=== PATIENT | female | born 1995 | race Caucasian/White ===

== ENCOUNTER 2021-05-29 14:07 | Emergency (ER) | payer BC ==
--- OUTSIDE RECORDS SUMMARY | 2021-05-29 14:10 | XMS REPORT | Continuity of Care Document ---
:1995 Author Organization [facility] t Address [address] [place] [address] Care Team Providers Name Role Phone Joaquin YEUNG Attending Clinician Unavailable Joaquin Arguelles DO Attending Clinician Joaquin Yeung MD Attending Clinician Doctor Unassigned, Name Attending Clinician Unavailable Lab, Fam Pob I Attending Clinician Unavailable Margy LUONG Attending Clinician MARGY Attending Clinician Unavailable FRACISCO Attending Clinician Unavailable DR VICTORIA Attending Clinician Unavailable Joaquin Yeung MD Admitting Clinician DR VICTORIA Admitting Clinician Unavailable Payers Payer Name Policy Type Policy Number Effective Date Expiration Date S [facility] [id number] 2014 00:00:00 Problems Condition Condition Condition Status Onset Resolution Last Treating Co mments Source Name Details Category Date Date Treatment Clinician Date 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 Univers arch arch 1-05 ity of anomaly anomaly 00:00: [place] 00 Medical Branch 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 1-05 ity of dilation dilation 00:00: 00 Medical Branch AV block, AV block, Disease Active 2019-04 Uni vers complete, complete, 1-05 [place] Pacemaker Pacemaker Disease Active 2019-04 Uni vers 1-05 ity of 00:00: [place] 00 Medical Branch Acute Acute Disease Active 2019-04 Univers appendicit appendicit 1-04 it y of is is 00:00: [place] [facility] Tinnitus Tinnitus Disease Active Unive rs 2-21 ity of 00:00: [place] 00 Medical Branch No known No known Disease Unive rs active active ity of problems problems [facility] Allergies, Adverse Reactions, Alerts Allergy Allergy Status Severity Reaction(s) Onset Inactive Treating Comm ents Source Name Type Date Date Clinician No Known DA Active [facility] s Center NO KNOWN Drug Active [facility] ALLERG Class ity of S [facility] Social History Social Habit Start Date Stop Date Quantity Comments Source Sex Assigned At Uni versity of [facility] Exposure to SARS-CoV-2 Not sure Un iversity of [place] (event) [facility] Smoking Status Start Date Stop Date Source Unknown if ever smoked Universit y [facility] Medications Ordered Filled Start Stop Current Ordering Indication Dosage Frequency Signature Comments Components Source Medication Medication Date Date Medication? Clinician (SIG) Name Name celecoxib 2019-04 Yes 100mg 100 mg, Univ ers (CELEBREX) 1-05 Oral, BID ity of capsule 100 14:00: [place]ALS[place] mg 00 First dose Medical on Thu Branch 02/09/20 at 0800, Until Discontinu ed, Routine lactated 2019-04 Yes 1000[facility]-05 mL/hr, ity of infusion 02:15: 1,000 mL[place] 1,000 [place] 00 IV Medical Infusion, Branch CONTINUOUS , Starting Thu02/08/20 at 2015, Until Discontinu ed, Routine, PACU D5W 0.45% 2019-04 Yes IV Univers NaCl 1-05 Infusion, ity of (1/2NS) 1 L 02:00: at 75 [place] + KCL 20 00 mL/hr, Medical mEq CONTINUOUS Branch , Starting Thu02/08/20 at 2000, Until Discontinu ed, Routine HYDROcodone 2019-04 Yes 1{tbl} 1 tablet, Univers -acetaminop 1-05 Oral, ity of hen (NORCO 01:52: Q6HPRN, [place] 5) 5-325 mg 41 Starting Medi jody tablet 1 Thu Branch tablet 02/08/20 at 1952, Until Discontinu ed, Routine, Pain (scale 7-10) ibuprofen 2019-04 Yes [id number] 800mg Take 1 Univers 800 mg 1-05 tablet by ity of tablet 00:00: mouth [place] 00 every 6 Medical (six) Branch hours as needed for Pain (scale 4-6). acetaminoph 2019-04 No [id number] 650mg Take 2 Univers en 325 mg 04-10 tablets by ity of tablet 00:00: 04:59 mouth [place] 00 :00 every 6 Medical (six) Branch hours as needed for Pain (scale 1-3) or Pain (scale 4-6). traMADoL 50 2019-04 No [id number] 50mg Take 1 Uni vers mg tablet 04-10 tablet by ity of 00:00: 05:59 mouth [place] 00 :00 every 6 Medical (six) Branch hours as needed for Pain (scale 7-10) for up to 7 days. Indication s: acute pain piperacilli 2019-04 No 3.375g 3.375 g, Univers n-tazobacta 04-09 IV ity of m (ZOSYN) 22:15: 01:53 Pig[place]back, [place] 3.375 g in 00 :23 Q6H ABX, Medic al NaCl 0.9% First dose Bran ch (NS) 100 mL on Thu MINI-BAG 02/08/20 at 1615, Until Discontinu ed, 100 mL
[place] for Anti-Infec tive: Documented Infection< br>Documen mayur Infection Site: Abdominal< br>Duratio n of Therapy: 7 days D5W 0.45% 2019-04- No IV Univers NaCl 04-09 Infusion, ity of (1/2NS) 1 L 21:45: 01:59 at 125 [place] + KCL 20 00 :10 mL/hr, Medical mEq CONTINUOUS Branch , Starting Thu02/08/20 at 1545, Until Thu02/08/20 at 1959, Routine morpHINE 2019-04- No 4mg 4 mg, Slow Un sara injection 4 04-09 IV Push, ity of mg 21:35: 21:34 Q4HPRN, [place] 34 :34 Starting Medical Wed Branch 02/08/20 at 1535, Until Thu02/10/20 at 1534, Routine, Pain (scale 7-10) ondansetron 2019-04 Yes 4mg 4 mg, Slow Univers (ZOFRAN 04-09 IV Push, ity of (PF)) 21:35: Q6HPRN, [place] injection 4 29 Starting Medi jody mg Wed [place] 02/08/20 at 1535, Until Discontinu ed, Routine, Nausea and Vomiting (N/V) ondansetron 2019-04- No 4mg 4 mg, Slow Univers (ZOFRAN 04-09 IV Push, ity of (PF)) 17:15: 16:17 ONCE, 1 [place] injection 4 00 :00 dose, Wed Med ical mg 02/08/20 at Branch 1115, GRETCHEN morpHINE 2019-04- No 4mg 4 mg, Slow Un sara injection 4 04-09 IV Push, ity of mg 17:15: 16:17 ONCE, 1 [place] 00 :00 dose, [facility] Medical 02/08/20 at [place] 1115, STAT NaCl 0.9% 2019-04- No 1000mL at 999 Uni vers (NS) bolus 04-09 mL/hr, ity of infusion 16:15: 16:15 1,000 mL, [place] 1,000 mL 00 :00 IV Medical Infusion, [place] ONCE, 1 dose, [facility] 02/08/20 at 1015, GRETCHEN iohexol 2019-04- No 120mL 120 mL, Unive rs (OMNIPAQUE 04-09 Intravenou it y of 350 15:30: 15:12 s, ONCE, 1 [place] BULK-150 00 :00 dose, [facility] Medica l mL) 02/08/20 at [place] injection 0930, 120 mL Routine maalox:diph 2019-04- No 15mL 15 mL, Uni vers enhydrAMINE 04-09 Oral, ity of :lidocaine 14:30: 14:33 ONCE, 1 [place] 2 % viscous 00 :00 dose, Wed Med ical 1:1:1 02/08/20 at [place] (FIRST-MOUT 0830, GRETCHEN HWASH BLM) oral suspension 15 mL traMADOL 2015-0 Yes 50mg Take 1 Tab Uni vers (ULTRAM) 50 9-27 by mouth ity of mg tablet 00:00: every 6 [place] 00 (six) Medical hours as [place] needed for Pain unrelieved by non-narcot ic analgesics . traMADOL 2015-0 Yes 50mg Take 1 Tab Uni vers (ULTRAM) 50 9-27 by mouth ity of mg tablet 00:00: every 6 [place] 00 (six) Medical hours as Branch needed for Pain unrelieved by non-narcot ic analgesics . traMADOL 50mg Take 1 Tab Un sara (ULTRAM) 50 12-31 by mouth ity of mg tablet 00:00: 00:00 every 6 [place] 00 :00 (six) Medical hours as Branch needed for Pain unrelieved by non-narcot ic analgesics . Vital Signs Vital Name Observation Time Observation Value Comments Source Systolic blood 2020-02-09 13:26:00 121 mm[Hg] Univer sity of pressure [facility] Diastolic blood 2020-02-09 13:26:00 76 mm[Hg] Unive rsity of [facility] Heart rate 2020-02-09 13:26:00 74 /min Universi ty of [facility] Body temperature 2020-02-09 13:26:00 36.61 Christie Univ ersity of [facility] Respiratory rate 2020-02-09 13:26:00 20 /min Univ ersity of [facility] Oxygen saturation in 2020-02-09 13:26:00 99 /min University of Arterial blood by [facility] Pulse oximetry Branch Body height 2020-02-08 18:23:00 165.1 cm Universi ty of [facility] Body weight 2020-02-08 18:23:00 68.493 kg Universi ty of [facility] BMI 2020-02-08 18:23:00 25.13 kg/m2 Universi ty [facility] Systolic blood 2020-02-09 13:26:00 121 mm[Hg] Univer sity of [facility] Diastolic blood 2020-02-09 13:26:00 76 mm[Hg] Unive rsity of [facility] Heart rate 2020-02-09 13:26:00 74 /min Universi ty of [facility] Body temperature 2020-02-09 13:26:00 36.61 Christie Univ ersity of [facility] Respiratory rate 2020-02-09 13:26:00 20 /min Univ ersity of [facility] Oxygen saturation in 2020-02-09 13:26:00 99 /min University of Arterial blood by [facility] Pulse oximetry Branch Body height 2020-02-08 18:23:00 165.1 [address]i ty [facility] Body weight 2020-02-08 18:23:00 68.493 kg [facility] BMI 2020-02-08 18:23:00 25.13 kg/m2 [facility] Height 2019-09-28 13:55:00 165.1 CM Weight 2019-09-28 13:55:00 30.32 KG Procedures Procedure Date / Time Performing Clinician Source Performed BASIC METABOLIC PANEL 2020-02-09 10:46:00 [facility] [place] (NA, K, CL, CO2, Medical Branch GLUCOSE, BUN, CREATININE, CA) CBC WITH DIFF 2020-02-09 10:46:00 Shon Ornelas [facility] LAPAROSCOPIC 2020-02-09 00:00:00 Shi Peterson [facility] APPENDECTOMY [facility] COVID-19 (ID NOW RAPID 2020-02-08 16:10:00 [facility] CT ABDOMEN PELVIS W 2020-02-08 15:18:37 Tish Arguelles [facility] CONTRAST [facility] Branch LIPASE 2020-02-08 14:32:00 Tish Arguelles [facility] HEPATIC FUNCTION PANEL 2020-02-08 14:32:00 [facility] ([id number] (ALB,T.PRO,BILI Medical Branch T,BU/BC,ALT,AST,ALK PHOS) BASIC METABOLIC PANEL 2020-02-08 14:32:00 Tish Arguelles [facility] versity [facility] (NA, K, CL, CO2, Medical Branch GLUCOSE, BUN, CREATININE, CA) CBC WITH DIFF 2020-02-08 14:32:00 Tish Arguelles [facility] URINALYSIS 2020-02-08 14:09:00 Tish Arguelles [facility] POCT TEST 2020-02-08 14:09:00 Tish Arguelles [facility] NOTICE OF PRIVACY 2020-02-08 13:48:54 Doctor Unassigned, No Univ [facility] PRACTICES Name [facility] CONSENT/REFUSAL FOR 2020-02-08 13:48:41 Doctor Unassigned, No [facility]AT[facility] Name [facility] Branch HOSPITAL ADMISSION 2020-02-08 06:01:00 Doctor Unassigned, No Uni versity of [facility] Encounters Start End Encounter Admission Attending Care Care Encounter Source Date/Time Date/Time Type Type Clinicians Facility Department ID 2021-02-02 Emergency [facility] [id number] Univers 02:57:[address] [facility] 2020-02-14 2020-02-14 Outpatient R GAMAL, [facility] [id number] Univers 11:15:00 11:15:[address] [facility] 2020-02-08 2020-02-09 Emergency Tish Arguelles 1.2.8 40.114 [id number] 08:06:00 12:49:00 Annelise Yeung [id number] [facility] [id number] [id number] 2020-02-08 2020-02-09 Emergency Tish Arguelles 1.2.8 40.114 [id number] Univers 08:06:00 12:49:00 Annelise Yeung [id number] ity of [facility] 4.2.7.2.686 [place] [phone] [facility] 095 [place] 2020-02-08 2020-02-08 Orders Doctor EVELINA [id number] 00:00:00 00:00:00 Only Unassigned, EZEQUIEL [id number] [place] [facility] 4.2.7.2.686 [id number] 2020-02-08 2020-02-08 Orders Doctor HOYT [id number] Univers 00:00:00 00:00:00 Only Unassigned, EZEQUIEL [id number] ity of [place] [facility] 4.2.7.2.686 [place] [id number] [facility] 009 [place] 2019-10-12 2019-10-12 Laboratory Lab, [facility] [id number] 14:55:22 15:15:22 Only Fam Pob I Health [id number] [place] 4.2.7.2.686 Professio [phone] nal [address] 2019-10-12 2019-10-12 Laboratory Lab, [facility] Fam Pob I [facility] 1.2. [id number] Univers 14:55:22 15:15:22 Only Bailey Fenton [facility] [id number] [facility] 4.2.7.2.686 [place] Professio [phone] Vt dical nal 0[address] Branch [address] 2019-10-12 2019-10-12 Outpatient [facility] [id number] Univers 15:00:00 15:00:00 BAILEY [facility] 2019-09-30 2019-09-30 Outpatient R MABLEARYAN, [facility] [id number] Univers 16:00:00 16:00:00 RIOS [facility] 2019-09-28 2019-09-28 Emergency E VICTORIA, [facility] [id number] [place] 13:55:00 15:45:00 ANNELISE Brady [facility] Results Test Description Test Time Test Comments Results Result Comments Source CBC with Differential 2020-02-09 12:07:00 Test Item Value Reference Range Interpretation Comme nts WBC (test code = 6690-2) See_Comment H [A utomated message] The system which ge nerated this result transmit mayur reference range: 4.30 - 1 1.10 10*3/?L. The reference r anca was not used to interpr et this result as normal/abnor mal. RBC (test code = 789-8) See_Comment [Au tomated message] The system which ge nerated this result transmit mayur reference range: 3.93 - 5 .25 10*6/?L. The reference r anca was not used to interpr et this result as normal/abnor mal. HGB (test code = 718-7) 12.1 g/dL 11.6-15 HCT (test code = 4544-3) 35.2 % 35.7-45.2 L MCV (test code = 787-2) 88.4 fL 80.6-95.5 MCH (test code = 785-6) 30.4 pg 25.9-32.8 MCHC (test code = 786-4) 34.4 g/dL 31.6-35.1 RDW-SD (test code = 08940-0) 38.2 fL 39-49.9 L RDW-CV (test code = 788-0) 11.8 % 12-15.5 L PLT (test code = 777-3) See_Comment [Au tomated message] The system which ge nerated this result transmit mayur reference range: 166 - 35 8 10*3/?L. The reference range was not used to interpret th is result as normal/abnormal . MPV (test code = 13613-6) 10.7 fL 9.5-12.9 NRBC/100 WBC (test code = See_Comment [ Automated message] The [id number]) system which ge nerated this result transmit mayur reference range: 0.0 - 10 .0 /100 WBCs. The reference r anca was not used to interpr et this result as normal/abnor mal. NRBC x10^3 (test code = <0.01 See_Comment [Au tomated message] The 4353078127) system which ge nerated this result transmit mayur reference range: 10*3/?L. The reference range was not u sed to interpret this result as normal/abnormal . GRAN MAT (NEUT) % (test code 91.9 % = 770-8) IMM GRAN % (test code = 0.50 % 8641241632) LYMPH % (test code = 736-9) 3.8 % MONO % (test code = 5905-5) 3.7 % EOS % (test code = 713-8) 0.0 % BASO % (test code = 706-2) 0.1 % GRAN MAT x10^3(ANC) (test 17.02 10*3/uL 1.88-7.09 H code = 9165222652) IMM GRAN x10^3 (test code = 0.10 10*3/uL 0-0.06 H 6182749734) LYMPH x10^3 (test code = 0.70 10*3/uL 1.32-3.29 L 731-0) MONO x10^3 (test code = 0.68 10*3/uL 0.33-0.92 742-7) EOS x10^3 (test code = <0.03 0.03-0.39 L 711-2) BASO x10^3 (test code = <0.03 0.01-0.07 704-7) BANDS (test code = Increased A 9075616188) Lab Interpretation (test Abnormal code = 26719-4) [facility] (NA, K, CL, CO2, GLUCOSE, BUN, CREATININE, CA)2020-02-09 11:48:00 Test Item Value Reference Range Interpretation Comments NA (test code = 136 mmol/L 135-145 4550090955) K (test code = 4.0 mmol/L 3.5-5 1201109725) CL (test code = 103 mmol/L 98-108 1316915960) CO2 TOTAL (test code = 24 mmol/L 23-31 5271912567) AGAP (test code = 2-16 2328725735) BUN (test code = 6 mg/dL 7-23 L 8037826221) GLUCOSE (test code = 160 mg/dL 70-110 H 7861527573) CREATININE (test code = 0.52 mg/dL 0.5-1.04 4593058895) CALCIUM (test code = 9.0 mg/dL 8.6-10.6 4001688939) eGFR Calculation mL/min/1.73m2 (Non-) (test code = 1123231597) eGFR Calculation mL/min/1.73m2 () (test code = 5139878393) RENU (test code = RENU) Association of Glomerular Filtration Rate (GFR) and Staging of Kidney Disease* + --+ --+ ------+| GFR (mL/min/1.73 m2) ?| With Kidney Damage ?| ?Without Kidney Damage+ --------+ --------+ +| ?>90 ?| ?Stage one ?| ? Normal ?+ ---+ ---+ -------+| ?60-89 ?| ?Stage two ?| ? Decreased GFR ? + --+ --+ ------+| ?30-59 ?| ?Stage three ?| ? Stage three ? + --+ --+ ------+| ?15-29 ?| ?Stage four ? | ? Stage four ?+ ---+ ---+ -------+| ?<15 (or dialysis) ? ?| ?Stage five ? | ? Stage five ?+ ---+ ---+ -------+ *Each stage assumes the associated GFR level has been in effect for at least three months. ?Stages 1 to 5, with or without kidney disease, indicate chronic kidney disease. Notes: Determination of stages one and two (with eGFR >59mL/min/1.73 m2) requires estimation of kidney damage for at least three months as defined by structural or functional abnormalities of the kidney, manifested by either:Pathological abnormalities or Markers of kidney damage (including abnormalities in the composition of the blood or urine or abnormalities in imaging tests). Lab Interpretation Abnormal (test code = 60849-9) [facility] NOW RAPID TESTING)2020-02-08 16:45:00 Test Item Value Reference Range Interpretation Comments SARS-CoV-2 Rapid ID NOW Not Detected Not Detected (test code = 81579-8) RENU (test code = RENU) ID NOW COVID-19 Assay is an isothermal nucleic acid amplification test intended for the qualitative detection of nucleic acid from SARS-CoV-2 viral RNA in nasopharyngeal (ROOM SERVICE ATTENDANT) specimens. It is used under Emergency Use Authorization (EUA) by FDA. The limit of detection (LOD) of the assay is 125 Genome Equivalents/mL. A positive result is indicative of the presence of SARS-CoV-2 RNA. ?Clinical correlation with patient history and other diagnostic information is necessary to determine patient infection status. A negative (Not Detected) result does not preclude SARS-CoV-2 infection. In patients with clinical symptoms and other tests that are consistent with SARS-CoV-2 infection, negative results should be treated as presumptive negative and a new specimen should be tested with alternative PCR molecular test. Invalid: Please collect a new specimen for repeat patient testing if clinically indicated. Lab Interpretation Normal (test code = 92385-1) [facility] W [id number] 15:25:15CT Abdomen and Pelvis with intravenous contrast. CLINICAL HISTORY: Acute generalized abdominal pain.DOSE: Up-to-date CT equipment and radiation dose reduction techniques wereemployed. CTDIvol: 6.62 mGy. DLP: 326 mGy-cm. TECHNIQUE : Contiguous axial imaging from the level of the lung basesthrough the pubic symphysis were performed after the uncomplicatedadministration of Omnipaque contrast material.Coronal and sagittalreconstructions were obtained. Auto mA and/or iterative reconstruction wereused to reduce radiation dose. FINDINGS: ? Lower lungs: Clear. Liver, Gallbladder and Spleen: Liver is slightly enlarged, 17.5 cm inlength. Spleen is approximately 10 x 3.2 cm. No focal lesions detected inthe liver or in the spleen. No calcified gallstones. Biliary ducts and thepancreatic duct appear of normal size. Peritoneum: ?No free air or free fluid. No lymphadenopathy. Pancreas and Adrenals: ?Unremarkable pancreas and adrenal glands. Kidneys and Ureters: ?No visible calculi in the renal collecting systems. No hydroureter or hydronephrosis. Vessels: Normal. Retroperitoneum: No abnormal fluid or lymphadenopathy. Bowel: Appendix is larger than normal size, measuring 10 cm in length andup to 12 to 14mm in diameter with mild inflammation of the mucosa notednear the base of the appendix and there is minimal congestion of theperiappendiceal fat. Radiopaque densities are seen in the gastric lumen as well as in severalsmall bowel lumen, likely orally ingested medications. Bladder and Reproductive Organs: Bulky uterus. Cystic lesions in theovaries, largest of 2.3 cm size in the left ovary, likely physiologic. Nogross pathology in the unopacified under distended urinary bladder. Bones: No acute findings. Soft tissues: Battery pack noted implanted over the left upper anteriorabdominal wall with electrode wires extending into the right dorsalepicardial space. CONCLUSION: Mild acute uncomplicated appendicitis. [facility], Radiant Results Inft User - 02/08/2020 9:26 AM CSTCT Abdomen and Pelvis with intravenous contrast.CLINICAL HISTORY: Acute generalized abdominal pain.DOSE: Up-to-date CT equipment and radiation dose reduction techniques wereemployed. CTDIvol: 6.62 mGy. DLP: 326 mGy-cm.TECHNIQUE : Contiguous axial imaging from the level of the lung basesthrough the pubic symphysis were performed after the uncomplicatedadministration of Omnipaque contrast material. Coronal and sagittalreconstructions were obtained. Auto mA and/or iterative reconstruction wereused to reduce radiation dose.FINDINGS: Lower lungs: Clear.Liver, Gallbladder and Spleen: Liver is slightly enlarged, 17.5 cm inlength. Spleen is approximately 10 x 3.2 cm. No focal lesions detected inthe liver or in the spleen. No calcified gallstones. Biliary ducts and thepancreatic duct appear of normal size.Peritoneum: No free air or freefluid. No lymphadenopathy.Pancreas and Adrenals: Unremarkable pancreas and adrenal glands.Kidneys and Ureters: No visible calculi in the renal collecting systems. No hydroureter or hydronephrosis. Vessels: Normal.Retroperitoneum: No abnormal fluid or lymphadenopathy.Bowel: Appendix is larger than normal size, measuring 10 cm in length andup to 12 to 14 mm in diameter with mild inflammation of the m ucosa notednear the base of the appendix and there is minimal congestion of theperiappendiceal fat.Radiopaque densities are seen in the gastric lumen as well as in severalsmall bowel lumen, likely orally ingested medications.Bladder and Reproductive Organs: Bulky uterus. Cystic lesions in theovaries, largest of 2.3 cm size in the left ovary, likely physiologic. Nogross pathology in the unopacified under distended urinary bladder.Bones: No acute findings.Soft tissues: Battery pack noted implanted over the left upper anteriorabdominal wall with electrode wires extending into the right dorsalepicardial space.CONCLUSION: Mild acute uncomplicated appendicitis.[facility] with [id number] 15:21:00 Test Item Value Reference Range Interpretation Comments WBC (test code = See_Comment H [Automated 6890-2) message] The system which generated this result transmit mayur reference range : 4.30 - 11.10 10*3/?L. The reference range was not used to interpret this result as normal/abnormal . RBC (test code = See_Comment [Automated 559-8) message] The system which generated this result transmit mayur reference range : 3.93 - 5.25 10*6/?L. The reference range was not used to interpret this result as normal/abnormal . HGB (test code = 12.9 g/dL 11.6-15 718-7) HCT (test code = 37.7 % 35.7-45.2 4544-3) MCV (test code = 87.7 fL 80.6-95.5 787-2) MCH (test code = 30.0 pg 25.9-32.8 785-6) MCHC (test code = 34.2 g/dL 31.6-35.1 786-4) RDW-SD (test code = 36.8 fL 39-49.9 L 95870-0) RDW-CV (test code = 11.5 % 12-15.5 L 788-0) PLT (test code = See_Comment [Automated 777-3) message] The system which generated this result transmit mayur reference range : 166 - 358 10*3/ ?L. The reference range was not u sed to interpret th is result as normal/abnormal . MPV (test code = 9.9 fL 9.5-12.9 81863-6) NRBC/100 WBC (test See_Comment [Automat ed code = 2280380138) message] The system which generated this result transmit mayur reference range : 0.0 - 10.0 /100 WBCs. The reference range was not used to interpret this result as normal/abnormal . NRBC x10^3 (test code <0.01 See_Comment [Auto mated = 7402065773) message] The system which generated this result transmit mayur reference range : 10*3/?L. The reference range was not used to interpret this result as normal/abnormal . GRAN MAT (NEUT) % 92.4 % (test code = 770-8) IMM GRAN % (test code 0.70 % = 7982973458) LYMPH % (test code = 4.1 % 736-9) MONO % (test code = 2.5 % 5905-5) EOS % (test code = 0.0 % 713-8) BASO % (test code = 0.3 % 706-2) GRAN MAT x10^3(ANC) 15.97 10*3/uL 1.88-7.09 H (test code = 3198659918) IMM GRAN x10^3 (test 0.12 10*3/uL 0-0.06 H code = 8856211477) LYMPH x10^3 (test code 0.71 10*3/uL 1.32-3.29 L = 731-0) MONO x10^3 (test code 0.44 10*3/uL 0.33-0.92 = 742-7) EOS x10^3 (test code = <0.03 0.03-0.39 L 711-2) BASO x10^3 (test code 0.05 10*3/uL 0.01-0.07 = 704-7) Lab Interpretation Abnormal (test code = 97173-1) [facility] Metabolic Panel (NA, K, CL, CO2, GLUCOSE, BUN, CREATININE, CA)2020-02-08 14:56:00 Test Item Value Reference Range Interpretation Comments NA (test code = 135 mmol/L 135-145 7199792818) K (test code = 4.1 mmol/L 3.5-5 1843586530) CL (test code = 100 mmol/L 98-108 7059555602) CO2 TOTAL (test code = 27 mmol/L 23-31 7826719841) AGAP (test code = 2-16 7817809644) BUN (test code = 8 mg/dL 7-23 1504535808) GLUCOSE (test code = 125 mg/dL 70-110 H 6281064854) CREATININE (test code = 0.51 mg/dL 0.5-1.04 8639247121) CALCIUM (test code = 10.2 mg/dL 8.6-10.6 9426070856) eGFR Calculation mL/min/1.73m2 (Non-) (test code = 9405173543) eGFR Calculation mL/min/1.73m2 () (test code = 5197471502) RENU (test code = RENU) Association of Glomerular Filtration Rate (GFR) and Staging of Kidney Disease* + --+ --+ ------+| GFR (mL/min/1.73 m2) ?| With Kidney Damage ?| ?Without Kidney Damage+ --------+ --------+ +| ?>90 ?| ?Stage one ?| ? Normal ?+ ---+ ---+ -------+| ?60-89 ?| ?Stage two ?| ? Decreased GFR ? + --+ --+ ------+| ?30-59 ?| ?Stage three ?| ? Stage three ? + --+ --+ ------+| ?15-29 ?| ?Stage four ? | ? Stage four ?+ ---+ ---+ -------+| ?<15 (or dialysis) ? ?| ?Stage five ? | ? Stage five ?+ ---+ ---+ -------+ *Each stage assumes the associated GFR level has been in effect for at least three months. ?Stages 1 to 5, with or without kidney disease, indicate chronic kidney disease. Notes: Determination of stages one and two (with eGFR >59mL/min/1.73 m2) requires estimation of kidney damage for at least three months as defined by structural or functional abnormalities of the kidney, manifested by either:Pathological abnormalities or Markers of kidney damage (including abnormalities in the composition of the blood or urine or abnormalities in imaging tests). Lab Interpretation Abnormal (test code = 52484-9) [facility] (ALB, T.PRO, BILI T, BU/BC, ALT, AST, ALK PHOS)2020-02-08 14:56:00 Test Item Value Reference Range Interpretation Comments TOTAL BILI (test code = 5161232133) 0.7 mg/dL 0.1-1.1 BILI UNCON (test code = 9865712616) 0.7 mg/dL 0.1-1.1 BILI CONJ (test code = 5498227410) 0.0 mg/dL 0-0.3 T PROTEIN (test code = 0481880472) 8.4 g/dL 6.3-8.2 H ALBUMIN (test code = 0856725741) 4.9 g/dL 3.5-5 ALK PHOS (test code = 7655636466) 72 U/L 34-122 ALTv (test code = 1742-6) 19 U/L 5-35 AST(SGOT) (test code = 2504030468) 24 U/L 13-40 Lab Interpretation (test code = Abnormal 14161-0) [facility] [id number] 14:56:00 Test Item Value Reference Range Interpretation Comments LIPASE (test code = 6730946916) 84 U/L 0-220 Lab Interpretation (test code = Normal 44661-0) [facility] 14:30:00 Test Item Value Reference Range Interpretation Comments APPEARANCE (test code = Clear Clear 4195187540) COLOR (test code = Yellow Yellow 2313735969) PH (test code = 4.8-8.0 6406007530) SP GRAVITY (test code = 1.003-1.030 1439950563) GLU U QUAL (test code = Normal Normal 0844697075) BLOOD (test code = Negative Negative 5531805411) KETONES (test code = 5 mg/dL Negative A 5963510378) PROTEIN (test code = Negative Negative 2887-8) UROBILIN (test code = Normal Normal 9012698633) BILIRUBIN (test code = Negative Negative 7880475478) NITRITE (test code = Negative Negative 1819118415) LEUK ROBIN (test code = Negative Negative 5205703598) RBC/HPF (test code = See_Comment [Autom ated message] 8099115268) The system [employer] generated this result transmitted ref erence range: 0 - 3 HP F. The reference range was not used to int erpret this result as normal/abnormal . WBC/HPF (test code = <1 See_Comment [Autom ated message] 2140222655) The system [employer] generated this result transmitted ref erence range: 0 - 5 HP F. The reference range was not used to int erpret this result as normal/abnormal . BACTERIA (test code = Few Negative A 5668092997) MUCOUS (test code = Slight Negative LPF A 1484936403) SQ EPITH (test code = HPF 0631823061) Lab Interpretation (test Abnormal code = 81703-6) [facility] [id number] 14:09:00 Test Item Value Reference Range Interpretation Comments POCT PREG (test code = 1605) negative On board controls acceptable with present C Line (test code = 3574) POCT PREG LOT # (test code = 3575) [id number] POCT PREG TEST DATE (test 2021-07-04 code = 3576) Lab Interpretation (test code = Normal 78464-2) [facility] ([facility]APID ANTIGEN) WW2019-09-28 15:25:00 Test Item Value Reference Range Interpretation Comments SARS-CoV (ANTIGEN) POSITIVE NEGATIVE AA (test code = COVAG) COVID AG (test This test has been code = COVAGC) marketed under the FDA Emergency Use Authorization (EUA) to meet challenges of the COVID-19 pandemic. The validation standards normally enforced by the FDA and the [employer] of [employer] (CAP) are more stringent than those required for this test. Therefore, the result should be interpreted with caution and close attention to other clinical and epidemiological data TROPONIN I *WW*2019-09-28 14:40:00 Test Item Value Reference Range Interpretation Comments TROPONIN I (test code = A84) <0.015 ng/mL 0.000-0.045"
[2021-05-29 16:04] LABS: Absolute Lymphocytes (CBC) 1.4 K/uL (0.7-4.9); Hematocrit 39.1 % (36.0-45.0); Lymphocytes % 17.4 % (15.3-44.8); MPV 8.5 fL (7.6-11.3)
[2021-05-29 16:10] LABS: Protime INR 1.08
[2021-05-29 16:27] LABS: ALT/SGPT 32 U/L (12-78); AST/SGOT 16 U/L (15-37); Albumin 4.7 g/dL (3.4-5.0); Alkaline Phosphatase 66 U/L (45-117); BUN Blood Urea Nitrogen 10 mg/dL (7-18); Bicarbonate 24 mmol/L (21-32); Bilirubin Direct 0.2 mg/dL (0-0.2); Bilirubin Total 0.5 mg/dL (0.2-1.0); Glucose Level 106 mg/dL (74-106); Magnesium 2.3 mg/dL (1.8-2.4); NT PRO-BNP 88 pg/mL (<125); Potassium 3.4 mmol/L (3.5-5.1); Protein, Total 9.1 g/dL (6.4-8.2); Sodium Level 136 mmol/L (136-145)
--- NOTE | 2021-05-29 16:42 | RAD REPORT ---
EXAM DESCRIPTION: RAD - Chest Single View - 05/29/2021 4:36 pm CLINICAL HISTORY: CHEST PAIN Chest pain. COMPARISON: No comparisons FINDINGS: Portable technique limits examination quality. The lungs are grossly clear. The heart is normal in size. No displaced fractures. IMPRESSION: No acute intrathoracic process suspected.
--- NOTE | 2021-05-29 17:58 | ER ---
Nurse's Notes [facility] Name: Perla Carlson Age: 25 yrs Sex: Female : 1995 Arrival Date: 05/29/2021 Time: 14:08 Bed 27 Private MD: Diagnosis: Chest pain on breathing Presentation: 05/29 14:37 Chief complaint: Patient states: Pt c/o left shoulder pain that radiates into neck and ss7 chest with left arm paresthesias, no longer present . Complete AV block and PM placed at age 8. Coronavirus screen: Vaccine status: Patient reports being unvaccinated. Ebola Screen: No symptoms or risks identified at this time. Initial Sepsis Screen: Does the patient meet any 2 criteria? No. Patient's initial sepsis screen is negative. Does the patient have a suspected source of infection? No. Patient's initial sepsis screen is negative. Risk Assessment: Do you want to hurt yourself or someone else? Patient reports no desire to harm self or others. Onset of symptoms was May 29, 2021. 14:37 Method Of Arrival: Ambulatory 7 14:37 Acuity: DENIA 3 ss7 Triage Assessment: 14:44 General: Appears in no apparent distress. Behavior is calm, cooperative. Pain: ap3 Complains of pain in left supraclavicular area and left clavicle Pain radiates to chest and left arm. Neuro: Level of Consciousness is awake, alert, obeys commands, Oriented to person, place, time, situation, Appropriate for age Gait is steady, Speech is normal. Cardiovascular: Reports chest pain, Patient's skin is warm and dry. Respiratory: Airway is patent Respiratory effort is even, unlabored. 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 - Social history:: Smoking status: Patient denies any tobacco usage or history of. - Family history:: not pertinent. Screenin:44 Abuse screen: Denies threats or abuse. Nutritional screening: No deficits noted. ap3 Tuberculosis screening: No symptoms or risk factors identified. Fall Risk No fall in past 12 months (0 pts). Assessment: 14:45 Pain: Pain began gradually, 2 hours ago. ap3 15:31 General: Appears in no apparent distress. comfortable, Behavior is calm, cooperative, ss7 appropriate for age. Pain: Complains of pain in chest. Neuro: Reports paresthesias in left arm. Cardiovascular: Heart tones S1 S2. Respiratory: Breath sounds are clear bilaterally. GI: No deficits noted. Bowel sounds present X 4 quads. EENT: No deficits noted. Derm: No deficits noted. Musculoskeletal: No deficits noted. Vital Signs: 14:37 BP 135 / 82 RA Sitting (auto/reg); Pulse 78; Resp 16; Temp 98.8; Pulse Ox 98% ; Weight ss7 68.95 kg; Height 5 ft. 5 in. (165.10 cm); Pain 5/10; 15:31 BP 136 / 84; Pulse 76; Resp 16; Pulse Ox 98% on R/A; ss7 16:50 BP 118 / 79; Pulse 73; Resp 18; Pulse Ox 99% on R/A; ss7 18:00 BP 111 / 71; Pulse 74; Resp 18; Pulse Ox 100% on R/A; ss7 14:37 Body Mass Index 25.29 (68.95 kg, 165.10 cm) ss7 ED Course: 14:08 Patient arrived in ED. as 14:40 Triage completed. ss7 14:45 Patient maintains SpO2 saturation greater than 95% on room air. ap3 14:45 Arm band placed on right wrist. ap3 15:15 Jessica Morel, RN is Primary Nurse. ss7 15:25 Zainab Jones MD is Attending Physician. ma2 15:31 No provider procedures requiring assistance completed. Inserted saline lock: 20 gauge ss7 in right antecubital area, using aseptic technique. 15:31 Patient has correct armband on for positive identification. Bed in low position. Call ss7 light in reach. Side rails up X2. manager safe on. Pulse ox on. NIBP on. Warm blanket given. 16:04 Basic Metabolic Panel Sent. ss7 16:04 Basic Metabolic Panel Sent. ss7 16:04 CBC with Diff Sent. ss7 16:04 LFT's Sent. ss7 16:04 Magnesium Sent. ss7 16:04 NT PRO-BNP Sent. ss7 16:04 PT-INR Sent. ss7 16:04 Troponin HS Sent. ss7 16:36 XRAY Chest (1 view) In Process Unspecified. EDMS 18:00 IV discontinued, intact. ss7 Administered Medications: No medications were administered Outcome: 17:58 Discharge ordered by . [email or web address] 18:00 Discharged to home ambulatory. ss7 18:00 Condition: good 18:00 Discharge instructions given to patient, Prescriptions given X 2. 18:20 Patient left the ED. ss7 Signatures: Dispatcher [employer] Lavonne Elena Mohammad, MD MD ma2 Dayami Garcia RN RN [email or web address] Jessica Morel RN RN ss7
--- NOTE | 2021-05-29 17:58 | EDPHYS ---
Physician Documentation [facility] Name: Perla Carlson Age: 25 yrs Sex: Female : 1995 Arrival Date: 05/29/2021 Time: 14:08 Bed 27 Private MD: ED Physician Zainab Jones HPI: 05/29 16:08 This 25 yrs old Female presents to ER via Ambulatory with complaints of Chest Pain. 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 - Social history:: Smoking status: Patient denies any tobacco usage or history of. - Family history:: not pertinent. ROS: 16:08 Constitutional: Negative for fever, chills, and weight loss. ma2 16:08 All other systems are negative. Exam: 16:08 Constitutional: This is a well developed, well nourished patient who is awake, alert, ma2 and in no acute distress. Head/Face: Normocephalic, atraumatic. Eyes: Pupils equal round and reactive to light, extra-ocular motions intact. Lids and lashes normal. Conjunctiva and sclera are non-icteric and not injected. Cornea within normal limits. Periorbital areas with no swelling, redness, or edema. ENT: Nares patent. No nasal discharge, no septal abnormalities noted. Tympanic membranes are normal and external auditory canals are clear. Oropharynx with no redness, swelling, or masses, exudates, or evidence of obstruction, uvula midline. Mucous membranes moist. Neck: Trachea midline, no thyromegaly or masses palpated, and no cervical lymphadenopathy. Supple, full range of motion without nuchal rigidity, or vertebral point tenderness. No Meningismus. Chest/axilla: Normal chest wall appearance and motion. Nontender with no deformity. No lesions are appreciated. Cardiovascular: Regular rate and rhythm with a normal S1 and S2. No gallops, murmurs, or rubs. Normal PMI, no JVD. No pulse deficits. Respiratory: Lungs have equal breath sounds bilaterally, clear to auscultation and percussion. No rales, rhonchi or wheezes noted. No increased work of breathing, no retractions or nasal flaring. Abdomen/GI: Soft, non-tender, with normal bowel sounds. No distension or tympany. No guarding or rebound. No evidence of tenderness throughout. Back: No spinal tenderness. No costovertebral tenderness. Full range of motion. Skin: Warm, dry with normal turgor. Normal color with no rashes, no lesions, and no evidence of cellulitis. MS/ Extremity: Pulses equal, no cyanosis. Neurovascular intact. Full, normal range of motion. Neuro: Awake and alert, GCS 15, oriented to person, place, time, and situation. Cranial nerves II-XII grossly intact. Motor strength 5/5 in all extremities. Sensory grossly intact. Cerebellar exam normal. Normal gait. Vital Signs: 14:37 BP 135 / 82 RA Sitting (auto/reg); Pulse 78; Resp 16; Temp 98.8; Pulse Ox 98% ; Weight ss7 68.95 kg; Height 5 ft. 5 in. (165.10 cm); Pain 5/10; 15:31 BP 136 / 84; Pulse 76; Resp 16; Pulse Ox 98% on R/A; ss7 16:50 BP 118 / 79; Pulse 73; Resp 18; Pulse Ox 99% on R/A; ss7 18:00 BP 111 / 71; Pulse 74; Resp 18; Pulse Ox 100% on R/A; ss7 14:37 Body Mass Index 25.29 (68.95 kg, 165.10 cm) 7 MDM: 15:25 Patient medically screened. ma2 17:56 Differential diagnosis: abnormal EKG, chest wall pain, gastroesophageal reflux disease ma2 (GERD), pleurisy. Data reviewed: vital signs, nurses notes, EMS record. ED course: EKG shows normal paced rhythm, otherwise lab work unremarkable vital signs within normal limits pain is clearly pleuritic and reproducible on exam, and worse with moving left shoulder, troponin is negative high-sensitivity troponin negative. 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 I gave return precautions patient understands all instructions. 05/29 15:48 Order name: Basic Metabolic Panel tn2 05/29 15:48 Order name: CBC with Diff; Complete Time: 17:24 tn2 05/29 15:48 Order name: LFT's; Complete Time: 17:24 tn2 05/29 15:48 Order name: Magnesium; Complete Time: 17:24 tn2 05/29 15:48 Order name: NT PRO-BNP; Complete Time: 17:24 tn2 05/29 15:48 Order name: PT-INR; Complete Time: 17:24 tn2 05/29 15:26 Order name: EKG; Complete Time: 15:26 tn2 05/29 15:48 Order name: Troponin HS; Complete Time: 17:24 tn2 05/29 15:48 Order name: XRAY Chest (1 view); Complete Time: 17:24 tn2 05/29 15:48 Order name: Cardiac monitoring; Complete Time: 16:04 tn2 05/29 15:48 Order name: EKG - Nurse/Tech; Complete Time: 16:04 tn2 05/29 15:48 Order name: IV Saline Lock; Complete Time: 16:04 tn2 05/29 15:48 Order name: Labs collected and sent; Complete Time: 16:04 tn2 05/29 15:48 Order name: Basic Metabolic Panel; Complete Time: 17:24 EDCO 05/29 15:48 Order name: O2 Per Protocol; Complete Time: 16:04 [facility] 05/29 15:48 Order name: O2 Sat Monitoring; Complete Time: 16:04 ma2 Administered Medications: No medications were administered Disposition Summary: 05/29/21 17:58 Discharge Ordered Location: Home ma2 Condition: Stable ma2 Diagnosis - Chest pain on breathing ma2 Followup: ma2 - With: Private Physician - When: Tomorrow - Reason: Continuance of care Discharge Instructions: - Discharge Summary Sheet ma2 - Chest Wall Pain ma2 Forms: - Medication Reconciliation Form ma2 - Thank You Letter ma2 - Antibiotic Education ma2 - Prescription Opioid Use ma2 Prescriptions: - ketorolac 10 mg Oral tablet - take 1 tablet by ORAL route every 4-6 hours not to exceed 40mg in 24hrs for up ma2 to 5 days total use; 30 tablet; Refills: 0, Product Selection Permitted - Diclofenac Sodium 75 mg Oral Tablet Sustained Release - take 1 tablet by ORAL route 2 times per day; 30 tablet; Refills: 0, Product ma2 Selection Permitted Signatures: Dispatcher [employer] Zainab Miller MD MD ma2 Jessica Morel RN RN ss7
[2021-05-29 18:58] VITALS: TEMP 98.8
[2021-05-29 19:04] VITALS: BP 111/71; O2SAT 100
== END 2021-05-29 18:20 | disposition home or self-care (01) ==
LOC: ER 14:07
DX: R07.1 Chest pain on breathing (principal); Z95.0 Presence of cardiac pacemaker
CPT/HCPCS: 36415; 71045; 80048; 80076; 83735; 83880; 84484; 85025; 85610; 99285

== ENCOUNTER 2024-01-13 01:19 | Emergency (ER) | payer BC, SELFPAY ==
--- OUTSIDE RECORDS SUMMARY | 2024-01-13 01:23 | XMS REPORT | Continuity of Care Document ---
Author Name Unknown Address [address] [facility] [address] [place] [address] [facility] Address [address] [facility]. 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 Name Role Phone Hunter DICKENS, [facility] Primary Care Physician [phone] SAMINA GRAVES Attending Clinician Unavailable CLAIRE MILNER Attending Clinician Unavailable CIARA BURGOS Attending Clinician UnavailEj Fraga MD Attending Clinician [phone] Ciara Burgos MD Attending Clinician [phone] Vance Lynn MD Attending Clinician [phone] BRETT QUINTANA Attending Clinician Unavailable PINA FLORES Attending Clinician Unavailable Brett Foreman Attending Clinician [phone] Pina Berger Attending Clinician [phone] Doctor Unassigned, [place] Attending Clinician U navailable Lab, Ang - Db Attending Clinician Unavailable CYNTHIA WATTS Attending Clinician Maria Luz JULIAN Rose Attending Clinician Unavailable Cynhtia Watts MD Attending Clinician RUBI RIZO Attending Clinician Unavailable Rubi Roman Attending Clinician [phone] Unknown, Attending Attending Clinician UnavailLUISA North Attending Clinician Unavailab LUISA Banerjee Attending Clinician UnavailANNELISE Shaver Attending Clinician Unavailab Tish Hirsch DO Attending Clinician [phone] Annelise Calderon MD Attending Clinician [phone] Lab, Adc Fam Pob I Attending Clinician UnavailBailey Blas Attending Clinician [phone] BAILEY JI Attending Clinician Unavailable RIOS YAP Attending Clinician Unavailable DR ANNELISE KESSLER Attending Clinician Unavailab karma MILNER, CLAIRE Admitting Clinician Unavailable VANCE LYNN Admitting Clinician Unavailable Annelise Calderon MD Admitting Clinician [phone] DR ANNELISE KESSLER Admitting Clinician Unavailab parada Payers Payer Name Policy Type Policy Number Effective Date Expirati on Date Source [facility] [id number] 2014 00:00:00 Problems Condition Name Condition Details Condition Category Status Onset Date Resolution Date Last Treatment Date Treating Clinician Comments Source Intentiona l overdose, initial encounter Intentiona l overdose, initial encounter Disease Active 08-29 00:00: 00 [facility] QT prolongati on QT prolongati on Disease Active 08-29 00:00: 00 [facility] Anxiety and depression Anxiety and depression Disease Active 06-04 00:00: 00 [facility] Mood disorder Mood disorder Disease Active 06-04 00:00: 00 [facility] Chronic nonintract able headache, unspecifie d headache type Chronic nonintract able headache, unspecifie d headache type Disease Active 06-04 00:00: 00 [facility] 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 2019-04 00:00: 00 [facility] Ascending aorta dilation Ascending aorta dilation Disease Active 2019-04 00:00: 00 [facility] AV block, complete, congenital AV block, complete, congenital Disease Active 2019-04 00:00: 00 [facility] Pacemaker Pacemaker Disease Active 2019-04 00:00: 00 [facility] Acute appendicit is Acute appendicit is Disease Active 2019-04 00:00: 00 [facility] Tinnitus Tinnitus Disease Active 05-27 00:00: 00 [facility] Allergies, Adverse Reactions, Alerts Allergy Name Allergy Type Status Severity Reaction(s) Onset Date Inactive Date Treating Clinician Comments Source No Known Allergie s DA Active [facility] NO KNOWN ALLERGIE S Drug Class Active [facility] Social History Social Habit Start Date Stop Date Quantity Comments Source Gender identity [facility] Sexual orientation U [facility] Alcohol intake 2022-12-31 00:00:00 2022-12-31 00:00:00 .14 /d [facility] History of Social function 2022-12-31 00:00:00 2022-12-31 00:00:00 [facility] Alcoholic beverage intake 2022-12-31 00:00:00 2022-12-31 00:00:00 .14 /d [facility] Exposure to SARS-CoV-2 (event) 2022-04-01 00:00:00 2022-04-11 11:25:00 Not sure [facility] Alcohol Comment 2022-04-11 00:00:00 2022-04-11 00:00:00 occasionally [facility] Tobacco use and exposure 2022-04-08 00:00:00 2022-04-08 00:00:00 Smokeless tobacco non-user [facility] Sex Assigned At 1995 00:00:00 1995 00:00:00 [facility] Smoking Status Start Date Stop Date Source Tobacco smoking consumption unknown [facility] Never smoked tobacco [facility] Medications Ordered Medication Name Filled Medication Name Start Date Stop Date Current Medication? Ordering Clinician Indication Dosage Frequency Signature (SIG) Comments Components Source Abilify 5 mg tablet 09-13 00:00: 00 Yes 1mg Edison Lorenz enoxaparin (LOVENOX) injection 40 mg 08-29 22:00: 00 Yes 40mg 40 mg, Subcutaneo us, DAILY, First dose on 08/30/23 at 1700, Until Discontinu ed, Routine [facility] ondansetron (ZOFRAN (PF)) injection 4 mg 08-29 05:59: 32 Yes 4mg [facility] traMADoL (ULTRAM) tablet 50 mg 08-29 05:59: 28 08-31 05:58 :28 No 50mg [facility] acetaminoph en (TYLENOL) tablet 650 mg 08-29 05:59: 27 Yes 650mg [facility] NaCl 0.9% (NS) bolus infusion 1,000 mL 08-29 04:45: 00 08-29 05:30 :00 No 1000mL at 999 mL/hr, 1,000 mL, IV Piggyback, ONCE, 1 dose, On 08/29/23 at 2345, STAT [facility] activated charcoal-so rbitoL (ACTIDOSE/S ORBITAL) 25 gram/120 mL suspension 25 g 08-29 04:00: 00 08-29 03:58 :00 No 25g 25 g, Oral, ONCE, 1 dose, On 08/29/23 at 2300, GRETCHEN [facility] ARIPiprazol e (ABILIFY) 15 mg tablet 06-04 00:00: 00 Yes [id number] 15mg Take 1 tablet by mouth in the morning. [facility] SERTraline 50 mg tablet 06-04 00:00: 00 Yes [id number] 50mg Take 1 tablet by mouth every morning. [facility] rizatriptan 5 mg tablet 06-04 00:00: 00 Yes [id number] 5mg Take 1 tablet by mouth as needed for Migraine. May repeat in 2 hours if needed [facility] SERTRALINE 50 mg tablet 1-08 00:00: 00 08-30 00:00 :00 No [id number] 50mg TAKE 1 TABLET BY MOUTH EVERY DAY IN THE MORNING [facility] SERTraline 50 mg tablet 2022-04 2-10 00:00: 00 06-04 00:00 :00 No 50mg Take 1 tablet by mouth every morning. [facility] busPIRone 5 mg tablet 2022-04 0 00:00: 00 Yes [id number] TAKE 1 TABLET BY MOUTH 2 TIMES DAILY NEEDED (ANXIETY). [facility] SERTraline 50 mg tablet 2022-04 00:00: 00 04-13 00:00 :00 No [id number] 50mg Take 1 tablet by mouth in the morning. [facility] SERTraline (ZOLOFT) 50 mg tablet 12-31 00:00: 00 02-01 00:00 :00 No [id number] Take 1/2 tab po daily x 1 week, then increase to 1 tab po daily. Avoid abrupt cessation. [facility] busPIRone 5 mg tablet 12-31 00:00: 00 02-01 00:00 :00 No [id number] 5mg Take 1 tablet by mouth 2 (two) times daily as needed (anxiety). [facility] dexamethaso ne sod phos PF injection 10 mg 04-09 01:45: 00 04-09 00:55 :00 No [id number] 10mg [facility] fluticasone propionate 50 mcg/actuati on nasal spray 04-08 00:00: 00 04-11 00:00 :00 No [id number] 2{spray } Use 2 Sprays in each nostril in the morning for 10 days. [facility] ibuprofen 800 mg tablet 2019-04 00:00: 00 04-08 00:00 :00 No [id number] 800mg Take 1 tablet by mouth every 6 (six) hours as needed for Pain (scale 4-6). [facility] Vital Signs Vital Name Observation Time Observation Value Comments S ource Systolic blood pressure 2023-08-31 16:55:00 111 mm[Hg] [facility] Diastolic blood pressure 2023-08-31 16:55:00 74 mm[Hg] [facility] Heart rate 2023-08-31 16:55:00 62 /min Unive [facility] Body temperature 2023-08-31 16:55:00 36.72 Christie [facility] Respiratory rate 2023-08-31 16:55:00 15 /min [facility] Oxygen saturation in Arterial blood by Pulse oximetry 2023-08-31 16:55:00 95 /min [facility] Body weight 2023-08-31 09:00:00 64.864 kg [facility] BMI 2023-08-31 09:00:00 23.80 kg/m2 [facility] Body height 2023-08-30 03:30:00 165.1 cm [facility] Systolic blood pressure 2023-06-05 20:50:00 137 mm[Hg] [facility] Diastolic blood pressure 2023-06-05 20:50:00 82 mm[Hg] [facility] Heart rate 2023-06-05 20:50:00 97 /min [facility] Body temperature 2023-06-05 20:50:00 36.83 Christie [facility] Respiratory rate 2023-06-05 20:50:00 18 /min [facility] Body height 2023-06-05 20:50:00 165.1 cm [facility] Body weight 2023-06-05 20:50:00 68.992 kg [facility] BMI 2023-06-05 20:50:00 25.31 kg/m2 [facility] Oxygen saturation in Arterial blood by Pulse oximetry 2023-06-05 20:50:00 97 /min [facility] Systolic blood pressure 2022-12-31 12:45:00 132 mm[Hg] [facility] Diastolic blood pressure 2022-12-31 12:45:00 85 mm[Hg] [facility] Heart rate 2022-12-31 12:45:00 67 /min [facility] Body temperature 2022-12-31 12:45:00 36.56 Christie [facility] Respiratory rate 2022-12-31 12:45:00 18 /min [facility] Body height 2022-12-31 12:45:00 165.1 cm [facility] Body weight 2022-12-31 12:45:00 68.448 kg [facility] BMI 2022-12-31 12:45:00 25.11 kg/m2 [facility] Oxygen saturation in Arterial blood by Pulse oximetry 2022-12-31 12:45:00 97 /min [facility] Systolic blood pressure 2022-12-05 14:49:00 121 mm[Hg] [facility] Diastolic blood pressure 2022-12-05 14:49:00 83 mm[Hg] [facility] Heart rate 2022-12-05 14:49:00 69 /min [facility] Body temperature 2022-12-05 14:49:00 36.67 Christie [facility] Body height 2022-12-05 14:49:00 165.1 cm [facility] Body weight 2022-12-05 14:49:00 68.04 kg [facility] BMI 2022-12-05 14:49:00 24.96 kg/m2 [facility] Systolic blood pressure 2022-04-11 17:32:00 125 mm[Hg] [facility] Diastolic blood pressure 2022-04-11 17:32:00 80 mm[Hg] [facility] Heart rate 2022-04-11 17:32:00 70 /min [facility] Body temperature 2022-04-11 17:32:00 36.67 Christie [facility] Body height 2022-04-11 17:32:00 165.1 cm [facility] Body weight 2022-04-11 17:32:00 73.483 kg [facility] BMI 2022-04-11 17:32:00 26.96 kg/m2 [facility] Oxygen saturation in Arterial blood by Pulse oximetry 2022-04-11 17:32:00 97 /min [facility] Systolic blood pressure 2022-04-09 00:34:00 136 mm[Hg] [facility] Diastolic blood pressure 2022-04-09 00:34:00 85 mm[Hg] [facility] Heart rate 2022-04-09 00:33:00 77 /[facility] 2022-04-09 00:33:00 36.94 Christie [facility] Respiratory rate 2022-04-09 00:33:00 16 /min [facility] Body height 2022-04-09 00:33:00 165.1 cm [facility] Body weight 2022-04-09 00:33:00 73.392 kg [facility] BMI 2022-04-09 00:33:00 26.92 kg/m2 [facility] Oxygen saturation in Arterial blood by Pulse oximetry 2022-04-09 00:33:00 98 /min [facility] Systolic blood pressure 2021-06-04 17:20:00 130 mm[Hg] [facility] Diastolic blood pressure 2021-06-04 17:20:00 77 mm[Hg] [facility] Heart rate 2021-06-04 17:20:00 76 /min [facility] Body temperature 2021-06-04 17:20:00 36.78 Christie [facility] Respiratory rate 2021-06-04 17:20:00 18 /min [facility] Body height 2021-06-04 17:20:00 165.1 cm [facility] Body weight 2021-06-04 17:20:00 69.4 kg [facility] BMI 2021-06-04 17:20:00 25.46 kg/m2 [facility] Oxygen saturation in Arterial blood by Pulse oximetry 2021-06-04 17:20:00 99 /min [facility] Height 2019-09-28 13:55:00 165.1 CM Weight 2019-09-28 13:55:00 30.32 KG BP Systolic 2023-09-14 09:43:00 146 mm[Hg] Step hen F Kelechi BP Diastolic 2023-09-14 09:43:00 92 mm[Hg] Efrain Lorenz Weight Measured 2023-09-14 09:43:00 159.20 pounds Edison Lorenz Height Measured 2023-09-14 09:43:00 66.00 inches Edison Lorenz Body Temperature 2023-09-14 09:43:00 98.20 degrees Edison Lorenz Heart Rate 2023-09-14 09:43:00 80.00 /min Lesley Lorenz Respiratory Rate 2023-09-14 09:43:00 98.00 /min Edison Lorenz Procedures Procedure Date / Time Performed Performing Clinician Source HB ECG ROUTINE & RHYTHM STRIP 2023-08-30 12:48:07 Vance Lynn [facility] MAGNESIUM 2023-08-30 08:30:00 Julian Hawk [facility] SALICYLATE 2023-08-30 08:30:00 Ej Rose [facility] ETHANOL 2023-08-30 08:30:[address] [facility] POCT TEST 2023-08-30 04:24:00 Ej Rose [facility] COVID-19 (MOLECULAR TESTING NUCLEIC ACID AMPLIFICATION) 2023-08-30 04:07:00 Ej Rose [facility] COVID-19 (ID NOW RAPID TESTING) 2023-08-30 04:07:00 Ej Rose [facility] HB ECG ROUTINE & RHYTHM STRIP 2023-08-30 04:06:05 Ej Rose [facility] COMP. METABOLIC PANEL ([id number]) 2023-08-30 04:02:00 Ej Rose [facility] SALICYLATE 2023-08-30 04:02:00 Ej Rose [facility] ETHANOL 2023-08-30 04:02:00 Ej Rose [facility] URINE DRUG (IMMUNOASSAY) - COMPREHENSIVE DRUG SCREEN 2023-08-30 04:02:00 Ej Rose [facility] CBC WITH DIFF 2023-08-30 04:02:00 Ej Rose [facility] CONSENT/REFUSAL FOR DIAGNOSIS AND TREATMENT 2022-12-05 14:42:00 Doctor Unassigned, [place] [facility] MEDICAL RELEASE/CLEARANCE FORMS 2021-06-04 06:01:00 Doctor Unassigned, [place] [facility] Encounters Start Date/Time End Date/Time Encounter Type Admission Type Attending [facility] Care Facility Care Department Encounter ID Source 2023-08-31 13:00:00 Inpatient [facility] [id number] [facility] 2021-02-02 02:57:21 Emergency [facility] [id number] [facility] 2023-12-23 14:25:49 2023-12-23 14:25:49 Outpatient S[facility] [id number] Edison Lorenz 2023-09-14 09:42:10 2023-09-14 09:42:10 Outpatient S[facility] [id number] Edison Lorenz 2023-09-14 00:00:00 2023-09-14 00:00:00 Outpatient Visit [facility] [id number] Edison Lorenz 2023-08-31 16:18:00 2023-09-04 12:50:00 Outpatient CLAIRE MILNER [facility] [id number] [facility] 2023-08-29 22:34:00 2023-08-31 15:58:00 Inpatient X CIARA BURGOS [facility] [id number] [facility] 2023-08-29 22:34:00 2023-08-31 15:58:00 Hospital Encounter Ej Rose Mohammad A. Emanuel, Roy [facility] [id number] 350.1.13.10 4.2.7.2.686 [id number] [facility] 2023-07-06 15:30:00 2023-07-06 15:30:00 Outpatient BRETT NAGEL [facility] [id number] [facility] 2023-07-06 15:30:00 2023-07-06 15:30:00 Outpatient R BRETT QUINTANA [facility] [id number] [facility] 2023-06-05 15:00:00 2023-06-05 15:32:51 Office Visit TrBrett casanova [facility] ISIS?[facility] [id number] 350.1.13.10 4.2.7.2.686 [id number] [facility] 2023-06-05 15:00:00 2023-06-05 15:32:51 Outpatient R BRETT QUINTANA [facility] [id number] [facility] 2023-04-10 00:00:00 2023-04-10 00:00:00 [facility] ISIS?[facility] [id number] 350.1.13.10 4.2.7.2.686 [id number] [facility] 2023-01-28 00:00:00 2023-01-28 00:00:00 Refill Audrey, Pina A [facility] ISIS?[facility] [id number] 350.1.13.10 4.2.7.2.686 [id number] [facility] 2023-01-28 00:00:00 2023-01-28 00:00:00 Refill Audrey Pina A [facility] ISIS?[facility] 1.2.840.114 350.1.13.10 4.2.7.2.686 [id number] [facility] 2022-12-31 07:30:00 2022-12-31 08:27:09 Outpatient R PINA FLORES [facility] [id number] [facility] 2022-12-31 07:30:00 2022-12-31 08:27:09 Office Visit Pina Flores [facility] 1.2.840.114 350.1.13.10 4.2.7.2.686 [id number] [facility] 2022-12-31 00:00:00 2022-12-31 00:00:00 Letter (Out) Pina Flores [facility] 1.284.114 350.1.13.10 4.2.7.2.686 [id number] [facility] 2022-12-16 00:00:00 2022-12-16 00:00:00 Patient Secure Msg Doctor Unassigned, [place] [facility] 1.84.114 350.1.13.10 4.2.7.2.686 [id number] [facility] 2022-12-09 11:15:00 2022-12-09 11:30:00 School Speech Therapist Visit Lab, Ang - Db Pina Flores [facility] 1.284.114 350.1.13.10 4.2.7.2.686 [id number] [facility] 2022-12-09 11:15:00 2022-12-09 11:15:00 Outpatient R PINA FLORES [facility] [id number] [facility] 2022-12-05 10:00:00 2022-12-05 10:43:32 Outpatient R RENEE FLORESLIE [facility] [id number] [facility] 2022-12-05 10:00:00 2022-12-05 10:43:32 Office Visit Pina Flroes [facility] 1.2.840.114 350.1.13.10 4.2.7.2.686 [id number] [facility] 2022-12-05 00:00:00 2022-12-05 00:00:00 Orders Only Doctor Unassigned, [place] [facility] 1.2840.114 350.1.13.10 4.2.7.2.686 [id number] [facility] 2022-12-05 00:00:00 2022-12-05 00:00:00 Patient Secure Msg Pina Flores [facility] 1..840.114 350.1.13.10 4.2.7.2.686 [id number] [facility] 2022-04-15 14:20:00 2022-04-15 14:20:00 Outpatient R JULIAN HAWK [facility] [id number] [facility] 2022-04-14 00:00:00 2022-04-14 00:00:00 Patient Secure Msg Doctor Unassigned, [place] [facility] 1.840.114 350.1.13.10 4.2.7.2.686 [id number] [facility] 2022-04-11 11:30:00 2022-04-11 12:41:58 Outpatient R CYNTHIA WATTS [facility] [id number] [facility] 2022-04-11 11:30:00 2022-04-11 12:41:58 Office Visit Cynthia Watts [facility] 1..840.114 350.1.13.10 4.2.7.2.686 [id number] [facility] 2022-04-08 18:20:00 2022-04-08 18:59:52 Outpatient R RUBI RIZO [facility] [id number] [facility] 2022-04-08 18:20:00 2022-04-08 18:59:52 Urgent Care Rubi Rizo Unknown, Attending [facility] 1.2840.114 350.1.13.10 4.2.7.2.686 [id number] [facility] 2021-06-11 00:00:00 2021-06-11 00:00:00 Patient Secure Msg Doctor Unassigned, [place] [facility] 1.2840.114 350.1.13.10 4.2.7.2.686 [id number] [facility] 2021-06-04 11:00:00 2021-06-04 14:23:45 Outpatient LUISA PERSON OGECHUKWU [facility] [id number] [facility] 2021-06-04 11:00:00 2021-06-04 14:23:45 Office [facility] Lu[facility] 1.2840.114 350.1.13.10 4.2.7.2.686 [id number] [facility] 2021-06-04 00:00:00 2021-06-04 00:00:00 Orders Only Doctor Unassigned, [place] [facility] 1.2840.114 350.1.13.10 4.2.7.2.686 [id number] [facility] 2020-02-14 11:15:00 2020-02-14 11:15:00 Outpatient ANNELISE GARZA [facility] [id number] [facility] 2020-02-08 08:06:00 2020-02-09 12:49:00 Emergency Tish Arguelles [facility] 1.284.114 350.1.13.10 4.2.7.2.686 [id number] [facility] 2020-02-08 08:06:00 2020-02-09 12:49:00 Emergency Blane, Tish Calderon, Annelise Nuñez [facility] 1.2.840.114 350.1.13.10 4.2.7.2.686 [id number] 2020-02-08 00:00:00 2020-02-08 00:00:00 Orders Only Doctor Unassigned, [place] [facility] 1.2.840.114 350.1.13.10 4.2.7.2.686 [id number] [facility] 2020-02-08 00:00:00 2020-02-08 00:00:00 Orders Only Doctor Unassigned, [place] [facility] 1.2.840.114 350.1.13.10 4.2.7.2.686 [id number] 2019-10-14 00:00:00 2019-10-14 00:00:00 Patient Secure Msg Doctor Unassigned, [place] [facility] 1.2.840.114 350.1.13.10 4.2.7.2.686 [id number] [facility] 2019-10-12 14:55:22 2019-10-12 15:15:22 Laboratory Only Lab, [facility] 1.840.114 350.1.13.10 4.2.7.2.686 [id number] [facility] 2019-10-12 14:55:22 2019-10-12 15:15:22 Laboratory Only Lab, [facility] Fam Pob I [facility] Office [facility] 1.840.114 350.1.13.10 4.2.7.2.686 [id number] 2019-10-12 15:00:00 2019-10-12 15:00:00 Outpatient Romeo JI [facility] [id number] [facility] 2019-09-30 16:00:00 2019-09-30 16:00:00 Outpatient RIOS MTZ [facility] [id number] [facility] 2019-09-28 13:55:00 2019-09-28 15:45:00 Emergency ANNELISE RENEE [facility] [id number] [facility] Results Test Description Test Time Test Comments Results Result Co mments Source [facility]2024-05-26 15:36:09* Test Item Value Reference Range Interpretation Comme nts ALCOHOL (test code = 7349827801) 21 mg/dL RENU (test code = RENU) Toxic Greater than or equal to 80 mg/dL. NOTE: Whole blood values are approximately 10% to 15% lower than serum and plasma. [facility]2024-05-26 09:29:49* Test Item Value Reference Range Interpretation Comme nts SALICYLATE (test code = [id number]) 16 mg/L RENU (test code = RENU) Therapeutic Range: ? Analgesic and Antipyretic Use ? 20-100 mg/L ? ? Anti-Inflammatory Use ? 100-250 mg/L Toxic Range: ? Greater than 300 mg/L [facility]40[facility]37* Test Item Value Reference Range Interpretation Comme nts ACETAMINOP (test code = [id number]) 10.0-30.0 L RENU (test code = RENU) Toxic: Greater lucina n 200 ug/mL @ 4 hour post ingestion or greater than 50 ug/mL @ 12 hour post ingestion Lab Interpretation (test code = 51636-4) Abnormal [facility]2024-05-26 04:38:02* Test Item Value Reference Range Interpretation Comme nts ALCOHOL (test code = 7403034681) 108 mg/dL RENU (test code = RENU) <10 Txnansyy78-135 Toxic>100 Depression of CALL CENTER RECRUITER>400 [facility] Test Item Value Reference Range Interpretation Comme nts SALICYLATE (test code = 5473736369) 31 mg/L RENU (test code = RENU) Therapeutic Range: ? Analgesic and Antipyretic Use ? 20-100 mg/L ? ? Anti-Inflammatory Use ? 100-250 mg/L Toxic Range: ? Greater than 300 mg/L [facility]. Metabolic Panel (50131)2023-08-30 04:37:41* Test Item Value Reference Range Interpretation Comme nts NA (test code = 0818165482) 145 mmol/L 135-145 K (test code = 4753273581) 3.8 mmol/L 3.5-5.0 CL (test code = 8740033717) 111 mmol/L 98-108 H CO2 TOTAL (test code = 9230314183) 22 mmol/L 23-31 L AGAP (test code = 1175970598) 12 2-16 BUN (test code = 5473061287) 13 mg/dL 7-23 GLUCOSE (test code = 8160495393) 85 mg/dL 70-110 CREATININE (test code = 2160-0) 0.92 mg/dL 0.50-1.04 TOTAL BILI (test code = 9668339811) 0.4 mg/dL 0.1-1.1 CALCIUM (test code = 8362307862) 9.6 mg/dL 8.6-10.6 T PROTEIN (test code = 3653015822) 8.1 g/dL 6.3-8.2 ALBUMIN (test code = 6407428231) 4.9 g/dL 3.5-5.0 ALK PHOS (test code = 3465523076) 80 U/L 34-122 ALTv (test code = 1742-6) 22 U/L 5-35 AST(SGOT) (test code = 3297639427) 28 U/L 13-40 eGFR (test code = 72614-7) 87.7 mL/min/1.73m2 CKD-EPI eGFR (2020). Assuming creatinine has been stable day-to-day for at least three months, the eGFR indicates Category G2 (60 - 89 mL/min/1.73 m2) Lab Interpretation (test code = 28859-4) Abnormal [facility] with [id number] 04:27:40* Test Item Value Reference Range Interpretation Comme nts WBC (test code = 6690-2) 8.76 4.30-11.10 RBC (test code = 789-8) 4.38 3.93-5.25 HGB (test code = 718-7) 13.6 g/dL 11.6-15.0 HCT (test code = 4544-3) 40.3 % 35.7-45.2 MCV (test code = 787-2) 92.0 fL 80.6-95.5 MCH (test code = 785-6) 31.1 pg 25.9-32.8 MCHC (test code = 786-4) 33.7 g/dL 31.6-35.1 RDW-SD (test code = 14060-4) 40.7 fL 39.0-49.9 RDW-CV (test code = 788-0) 12.0 % 12.0-15.5 PLT (test code = 777-3) 286 166-358 MPV (test code = 52694-0) 10.3 fL 9.5-12.9 NRBC/100 WBC (test code = 3758867296) 0.0 0.0-10.0 NRBC x10^3 (test code = 2005754299) See_Comment [Automated me ssage] The system which generated this result transmitted reference range: 10*3/?L. The reference range was not used to interpret this result as normal/abnormal. GRAN MAT (NEUT) % (test code = 770-8) 65.8 % IMM GRAN % (test code = 6696693707) 0.30 % LYMPH % (test code = 736-9) 21.9 % MONO % (test code = 5905-5) 8.1 % EOS % (test code = 713-8) 3.1 % BASO % (test code = 706-2) 0.8 % GRAN MAT x10^3(ANC) (test code = 3675056657) 5.76 10*3/uL 1.88-7.09 IMM GRAN x10^3 (test code = 9414099548) 0.03 10*3/uL 0.00-0.06 LYMPH x10^3 (test code = 731-0) 1.92 10*3/uL 1.32-3.29 MONO x10^3 (test code = 742-7) 0.71 10*3/uL 0.33-0.92 EOS x10^3 (test code = 711-2) 0.27 10*3/uL 0.03-0.39 BASO x10^3 (test code = 704-7) 0.07 10*3/uL 0.01-0.07 [id number] [facility]* Test Item Value Reference Range Interpretation Comme nts POCT PREG (test code = 1605) Negative On board controls acceptable with C Line (test code = 3574) Yes POCT PREG LOT # (test code = 3575) [id number] POCT PREG TEST DATE ( test code = 3576) 08/07/2024 Lab Interpretation (test cod e = 83274-2) Normal [facility]AP[facility]TIGEN) WW2019-09-28 15:25:00* Test Item Value Reference Range Interpretation Comme nts SARS-CoV (ANTIGEN) (test code = COVAG) POSITIVE NEGATIVE AA COVID AG (test code = COVAGC) This test has been marketed under the FDA Emergency Use Authorization (EUA) to meet challenges of the COVID-19 pandemic. The validation standards normally enforced by the FDA and the [employer] (CAP) are more stringent than those required for this test. Therefore, the result should be interpreted with caution and close attention to other clinical and epidemiological data TROPONIN I *WW*2019-09-28 14:40:00* Test Item Value Reference Range Interpretation Comme nts TROPONIN I (test code = A84) <0.015 ng/mL 0.000-0.045 Consult Notes Date/Time Note Provider Source 2023-08-30 14:12:40 Associated Order(s): CONSULT CARDIOLOGY [facility] Cardiology Consult PCP: Sincere Albert Date of Service: 08/30/2023 CHIEF COMPLAINT/reason for consult: QT prolongation HISTORY OF PRESENT ILLNESS This is a 28 years old female with past medical history of depression, anxiety, ascending aorta dilation, congenital AV block status post pacemaker, and QT prolongation. She came to [facility] after ingestion of multiple tablets of medications. Denies palpitations or syncope. EKG showed QT prolongation which has been chronic. PAST MEDICAL HISTORY Past Medical History: Diagnosis Date Aortic root dilation Congenital heart block Pacemaker 1996 Past Surgical History: Procedure Laterality Date LAPAROSCOPIC APPENDECTOMY N/A 02/08/2020 Surgeon: Shi Peterson MD; Location: [facility] PACEMAKER INSERTION Family History Problem Relation Age of Onset Arthritis Mother Kidney disease Mother SLE (systemic lupus erythematosus) Mother Diabetes Maternal Grandmother Stroke Maternal Grandmother Breast Cancer NoFHx Colon Cancer NoFHx ALLERGIES No Known Allergies MEDICATIONS No current facility-administered medications on file prior to encounter. Current Outpatient Medications on File Prior to Encounter Medication Sig Dispense Refill ARIPiprazole (ABILIFY) 15 mg tablet Take 1 tablet by mouth in the morning. 90 tablet 0 rizatriptan 5 mg tablet Take 1 tablet by mouth as needed for Migraine. May repeat in 2 hours if needed 18 tablet 0 SERTraline 50 mg tablet Take 1 tablet by mouth every morning. 90 tablet 0 SERTRALINE 50 mg tablet TAKE 1 TABLET BY MOUTH EVERY DAY IN THE MORNING 30 tablet 0 busPIRone 5 mg tablet TAKE 1 TABLET BY MOUTH 2 TIMES DAILY NEEDED (ANXIETY). 60 tablet 0 SOCIAL HISTORY Social History Socioeconomic History Marital status: Tobacco Use Smoking status: Never Smokeless tobacco: Never Substance and Sexual Activity Alcohol use: Not Currently Alcohol/week: 1.0 standard drink of alcohol Types: 1 Drinks containing 0.5 oz of alcohol per week Comment: occasionally Drug use: Never Sexual activity: Not Currently Partners: Female control/protection: None REVIEW OF SYSTEMS At least 10 systems reviewed, negative except as mentioned in HPI PHYSICAL EXAMINATION Vitals: 08/30/23 0709 08/30/23 0800 08/30/23 1000 08/30/23 1400 BP: 126/80 135/86 129/86 Pulse: 73 78 Resp: 15 13 Temp: 37.3 ?C (99.2 ?F) TempSrc: Temporal Artery SpO2: 94% 93% Weight: Height: Constitutional: alert and oriented x 3 (person, place and date/time); no apparent distress ENT: normocephalic atraumatic, supple, no lymphadenopathy, no bruits, no JVD Lungs: clear to auscultation bilaterally Cardiovascular: S1, S2 normal, regular; no murmurs, rubs or gallops GI: soft; non-tender; non-distended; normoactive bowel sounds : not examined Musculoskeletal: Extremities: no clubbing, cyanosis, or edema Skin: no rashes Neuro: no focal deficits LABS - reviewed pertinent labs as below: CBC BMP PT/INR WBC (10*3/?L) Date Value 08/29/2023 8.76 NA (mmol/L) Date Value 08/29/2023 145 No results found for: "PT" PLT (10*3/?L) Date Value 08/29/2023 286 K (mmol/L) Date Value 08/29/2023 3.8 No results found for: "PTINR" HGB (g/dL) Date Value 08/29/2023 13.6 BUN (mg/dL) Date Value 08/29/2023 13 HCT (%) Date Value 08/29/2023 40.3 CREATININE (mg/dL) Date Value 08/29/2023 0.92 LIPID PROFILE GLUCOSE (mg/dL) Date Value 08/29/2023 85 CHOL (mg/dL) Date Value 12/09/2022 141 TSH LDL CHOL (mg/dL) Date Value 12/09/2022 60 TSH (mIU/L) Date Value 12/09/2022 1.80 CARDIAC ENZYMES HDL (mg/dL) Date Value 12/09/2022 70 CK (U/L) Date Value 02/28/2015 78 TRIG (mg/dL) Date Value 12/09/2022 54 LFTs CK-MB (ng/mL) Date Value 02/28/2015 <0.22 AST(SGOT) (U/L) Date Value 08/29/2023 28 TROPONIN I (ng/mL) Date Value 08/21/2018 0.000 ALT(SGPT) (U/L) Date Value 08/21/2018 17 ALTv (U/L) Date Value 08/29/2023 22 No results found for: "BNP" EKG: Atrial sensed ventricular paced rhythm, QT prolongation ASSESSMENT/PLAN Principal Problem: Intentional overdose, initial encounter Active Problems: Ascending aorta dilation AV block, complete, congenital Pacemaker QT prolongation QT prolongation-I reviewed her serial EKGs. QT interval has been prolonged chronically. Ventricular paced rhythm noted. Check magnesium level. Keep potassium above 4 and magnesium above 2. I reviewed her telemetry. No arrhythmias. History of congenital complete AV block status post pacemaker plantation-EKG showed atrial sensed ventricular paced rhythm. Advised to reestablish with cardiology for follow-up. She has been doing remote pacemaker check. Ascending aorta dilation-she has lost follow-up on that. Recommend echocardiogram or CT angiogram to reassess the size. Thank you for allowing us to participate in the care of your patient. Please feel free to contact us for any questions or if we can be of further assistance. Julian Hawk MD, FACC, MARIO [facility] Division of Cardiovascular Medicine [facility] - Health 2023-08-30 11:09:02 Associated Order(s): CONSULT INTERPRETIVE PROGRAM COORDINATOR-ADULT Consult Acknowledge. Reason for consult - please give recommendation or opinion on: notifying [facility] for evaluation Ex[employer]uff[employer] Repairer requested evaluation with [facility] for the patient to be evaluated by a screener. [facility] will update CM if a screener will be sent out to evaluate the patient. [facility] Screener PH: [phone] Laila Carrillo LMSW [facility] Care Management - Crm Specialist [address] [address] E: [email or web address] P: [phone] Laila Carrillo [facility] - Health History and Physical Notes Date/Time Note Provider Source 2023-08-30 06:55:00 Medicine History & Physical Date of Service: 08/30/2023 Pt presents from: Home CC: Intentional overdose History of Present Illness: Monserrat Carlson is a 28 year old female with a PMH of depression, anxiety, previous suicide attempts, congenital AV block status post pacemaker who presented to the ED following ingestion of 50 tablets of SSRI, 30 tablets of Zyrtec. She took the pills at 9 PM. Her girlfriend observe this and called EMS right after. Patient denies any complaints. Her QTc is prolonged. She denies chest pain, palpitations, shortness of breath. Reviewing her records, age 19 was her last suicide attempt. Continues to have frequent suicidal ideation. She does see a primary care who notes that she has a labile mood, is often impulsive, has an erratic sleep schedule.. ROS: Pt denies fever / chills / nausea / vomiting / diarrhea / constipation / chest pain / SOB / cough / abdominal pain / dysuria / hematuria / melena / hematochezia / rashes / suicidal or homicidal ideation / All others negative Review of Hx/Meds: No current facility-administered medications on file prior to encounter. Current Outpatient Medications on File Prior to Encounter Medication Sig Dispense Refill ARIPiprazole (ABILIFY) 15 mg tablet Take 1 tablet by mouth in the morning. 90 tablet 0 rizatriptan 5 mg tablet Take 1 tablet by mouth as needed for Migraine. May repeat in 2 hours if needed 18 tablet 0 SERTraline 50 mg tablet Take 1 tablet by mouth every morning. 90 tablet 0 SERTRALINE 50 mg tablet TAKE 1 TABLET BY MOUTH EVERY DAY IN THE MORNING 30 tablet 0 busPIRone 5 mg tablet TAKE 1 TABLET BY MOUTH 2 TIMES DAILY NEEDED (ANXIETY). 60 tablet 0 I have reviewed the patient's home medications PMH: Past Medical History: Diagnosis Date Aortic root dilation Congenital heart block Pacemaker 1996 PSH: has a past surgical history that includes laparoscopic appendectomy (N/A, 02/08/2020) and Pacemaker insertion. Family Hx: Social History Tobacco Use Smoking status: Never Smokeless tobacco: Never Substance Use Topics Alcohol use: Not Currently Alcohol/week: 1.0 standard drink of alcohol Types: 1 Drinks containing 0.5 oz of alcohol per week Comment: occasionally Drug use: Never Current Scheduled Medications Current IV Current Facility-Administered Medications: acetaminophen (TYLENOL) tablet 650 mg, 650 mg, Oral, Q6HPRN, Vance Lynn MD enoxaparin (LOVENOX) injection 40 mg, 40 mg, Subcutaneous, DAILY, Vance Lynn MD ondansetron (ZOFRAN (PF)) injection 4 mg, 4 mg, Slow IV Push, Q6HPRN, Vance Lynn MD traMADoL (ULTRAM) tablet 50 mg, 50 mg, Oral, Q8HPRN, Vance Lynn MD Objective: Vitals: Vitals: 08/30/23 0445 08/30/23 0600 08/30/23 0709 08/30/23 0800 BP: 121/70 118/73 126/80 Pulse: 79 76 73 Resp: 15 Temp: 37.3 ?C (99.2 ?F) TempSrc: Temporal Artery SpO2: 94% 93% 94% Weight: Height: I/O's: Intake/Output Summary (Last 24 hours) at 08/30/2023 0856 Last data filed at 08/30/2023 0756 Gross per 24 hour Intake 1100 ml Output -- Net 1100 ml Physical Exam: Constitutional: A&O x3, well-developed, well-nourished, and in no distress. Head: Normocephalic and atraumatic. Eyes: PERRL. Conjunctivae and EOM are normal. Neck: Normal range of motion. Neck supple. No JVD present. Cardiovascular: Normal rate, regular rhythm, normal heart sounds Pulmonary/Chest: Effort normal and breath sounds normal. No respiratory distress. No wheezes, rales or rhonchi. Abdominal: Soft. Bowel sounds are normal. No TTP, non-distended and no masses. No rebound or guarding. Musculoskeletal: Normal range of motion. No edema or tenderness. Lymphadenopathy: No cervical adenopathy. Neurological: A&O x3. No focal deficits. Gait normal. Skin: Skin is warm and dry. No rash noted. No erythema. No pallor. Labs: BMP:BMP NA (mmol/L) Date Value 08/29/2023 145 12/09/2022 140 02/09/2020 136 02/08/2020 135 08/21/2018 144 K (mmol/L) Date Value 08/29/2023 3.8 12/09/2022 4.3 02/09/2020 4.0 02/08/2020 4.1 08/21/2018 3.9 CALCIUM (mg/dL) Date Value 08/29/2023 9.6 12/09/2022 9.8 02/09/2020 9.0 02/08/2020 10.2 08/21/2018 9.5 CL (mmol/L) Date Value 08/29/2023 111 (H) 12/09/2022 105 02/09/2020 103 02/08/2020 100 08/21/2018 108 BUN (mg/dL) Date Value 08/29/2023 13 12/09/2022 13 02/09/2020 6 (L) 02/08/2020 8 08/21/2018 8 CREATININE (mg/dL) Date Value 08/29/2023 0.92 12/09/2022 0.65 02/09/2020 0.52 02/08/2020 0.51 08/21/2018 0.55 GLUCOSE (mg/dL) Date Value 08/29/2023 85 12/09/2022 83 02/09/2020 160 (H) 02/08/2020 125 (H) 08/21/2018 97 CO2 TOTAL (mmol/L) Date Value 08/29/2023 22 (L) 12/09/2022 28 02/09/2020 24 02/08/2020 27 08/21/2018 29 CBC:CBC WBC (10*3/?L) Date Value 08/29/2023 8.76 RBC (10*6/?L) Date Value 08/29/2023 4.38 PLT (10*3/?L) Date Value 08/29/2023 286 HGB (g/dL) Date Value 08/29/2023 13.6 HCT (%) Date Value 08/29/2023 40.3 BMP:Hepatic Function Panel ALBUMIN (g/dL) Date Value 08/29/2023 4.9 T PROTEIN (g/dL) Date Value 08/29/2023 8.1 TOTAL BILI (mg/dL) Date Value 08/29/2023 0.4 BILI UNCON (mg/dL) Date Value 02/08/2020 0.7 BILI CONJ (mg/dL) Date Value 02/08/2020 0.0 ALT(SGPT) (U/L) Date Value 08/21/2018 17 ALTv (U/L) Date Value 08/29/2023 22 AST(SGOT) (U/L) Date Value 08/29/2023 28 ALK PHOS (U/L) Date Value 08/29/2023 80 Troponin: There are no current results on file for these tests and/or test for 1 year. I have reviewed all relevant labs Imaging: No results found. Assessment and plan: Principal Problem: Intentional overdose, initial encounter -Poison control consulted, as patient is status post activated charcoal -Admit to IMU, telemetry - Serial EKG, monitor for improvement in QTc - Avoid QTc prolonging agents - Psychiatry consultation - One-to-one sitter - Suicide precautions - Cardiology consultation for AV block, prolonged QTc DVT prophylaxis: Lovenox Advanced Care Planning ( Z71.89 ) Above assessment and plan discussed at length with patient, patient expressed full understanding. Questions and concerns addressed I spent 18 minutes discussing the advance care planning. Advanced Directive Maker: Self Level of comfort: N/A Code Status: Tobacco user (Z71.6) Patient counseled at length and Pt expressed full understanding, Time discussed 3 minutes Disposition: Admit to IMU T [facility] - Health Notes Date/Time Note Provider Source Edison Philip [facility]2024-05-27 14:10:53 Problem: Suicide, Risk of Goal: Absence of self-harm 08/31/2023 1410 by Le Coats RN Outcome: Adequate for discharge 08/31/2023 0910 by Le Coats RN Outcome: Progressing as expected Problem: Discharge Planning Goal: Adequate for discharge 08/31/2023 1410 by Le Coats RN Outcome: Adequate for discharge 08/31/2023 0910 by Le Coats RN Outcome: Progressing as expected Problem: Falls, Risk of Goal: Absence of falls 08/31/2023 1410 by Le Coats RN Outcome: Adequate for discharge 08/31/2023 0910 by Le Coats RN Outcome: Progressing as expected Problem: Mental Status - Impaired, Risk of Goal: Absence of physical injury 08/31/2023 1410 by Le Coats RN Outcome: Adequate for discharge 08/31/2023 0910 by Le Coats RN Outcome: Progressing as expected Problem: Pain Goal: Control of pain at or below patient's documented comfort goal 08/31/2023 1410 by Le Coats RN Outcome: Adequate for discharge 08/31/2023 0910 by Le Coats RN Outcome: Progressing as expected Problem: Venous Thromboembolism, (actual or risk of) Goal: Absence of venous thromboembolism (Risk) 08/31/2023 1410 by Le Coats RN Outcome: Adequate for discharge 08/31/2023 0910 by Le Coats RN Outcome: Progressing as expected [facility] Coats [id number] 09:10:50 Problem: Suicide, Risk of Goal: Absence of self-harm Outcome: Progressing as expected Problem: Discharge Planning Goal: Adequate for discharge Outcome: Progressing as expected Problem: Falls, Risk of Goal: Absence of falls Outcome: Progressing as expected Problem: Mental Status - Impaired, Risk of Goal: Absence of physical injury Outcome: Progressing as expected Problem: Pain Goal: Control of pain at or below patient's documented comfort goal Outcome: Progressing as expected Problem: Venous Thromboembolism, (actual or risk of) Goal: Absence of venous thromboembolism (Risk) Outcome: Progressing as expected [facility]2024-05-27 07:21:23 Problem: Suicide, Risk of Goal: Absence of self-harm Outcome: Progressing as expected Problem: Discharge Planning Goal: Adequate for discharge Outcome: Progressing as expected Problem: Falls, Risk of Goal: Absence of falls Outcome: Progressing as expected Problem: Mental Status - Impaired, Risk of Goal: Absence of physical injury Outcome: Progressing as expected Problem: Pain Goal: Control of pain at or below patient's documented comfort goal Outcome: Progressing as expected Problem: Venous Thromboembolism, (actual or risk of) Goal: Absence of venous thromboembolism (Risk) Outcome: Progressing as expected [facility]2024-05-27 06:40:21 Exclusionary form and accompanying paperwork faxed to [facility] Wilma Valiente RNUTMB - [id number] 12:52:55 Problem: Suicide, Risk of Goal: Absence of self-harm Outcome: Progressing as expected Problem: Discharge Planning Goal: Adequate for discharge Outcome: Progressing as expected Problem: Falls, Risk of Goal: Absence of falls Outcome: Progressing as expected Problem: Mental Status - Impaired, Risk of Goal: Absence of physical injury Outcome: Progressing as expected Problem: Pain Goal: Control of pain at or below patient's documented comfort goal Outcome: Progressing as expected Problem: Venous Thromboembolism, (actual or risk of) Goal: Absence of venous thromboembolism (Risk) Outcome: Progressing as expected Ade Dove RNUTMB - [id number] 08:48:53 SAFE-T Protocol with C-SSRS ([place] Risk and Protective Factors) - Recent Identify Risk Factors 1) Wish to be - Have you wished you were or wished you could go to sleep and not wake up?: (P) No 2) Current suicidal thoughts- Have you actually had any thoughts of killing yourself?: (P) No 3) Suicidal thoughts w/method- Have you been thinking about how you might do this?: (P) No 4) Suicidal intent without Specific Plan- Have you had these thoughts and had some intention of acting on them?: (P) No 5) Intent with Plan- Have you started to work out or worked out the details of how to kill yourself? Do you intend to carry out this plan?: (P) No 6) C-SSRS Suicidal Behavior- Have you ever done anything, started to do anything, or prepared to do anything to end your life?: (P) Yes 6b) Was it in the past 3 months?: (P) Yes Activating Events: Current or pending isolation or feeling alone Clinical Status: Major depressive episode Treatment History: Previous psychiatric diagnosis and treatments Access to lethal methods: (P) No Suggested risk level: (P) High Specific Questions of Thoughts, Plans, Intent: Frequency- how many times have you had these thoughts?: (P) Less than once a week Duration - When you have the thoughts, how long do they last?: (P) Fleeting-few seconds or minutes Controllability - could/can you stop thinking about killing yourself or wanting to if you want to?: (P) Can control thoughts with little difficulty Deterrents - Are there things- anyone or anything (e.g. family, confucianist, pain of ) that stopped you from wanting to or acting on thoughts of suicide?: (P) Deterrents most likely did not stop you Reasons for ideation - What sort of reasons did you have for wanting to or kill yourself? Was it to end pain, stop the way you are feeling, or to get attention, revenge or reaction from others? Or both?: (P) Does not apply Identify Protective Factors Internal: (P) Fear of or dying due to pain and suffering External: (P) Supportive social network of family or friends Stratification: High Suicide Risk Moderate Suicide Risk Low Suicide Risk ?? Suicidal ideation with intent or intent with plan in past month (C-SSRS Suicidal Ideation #4 or #5) Or ?? Suicidal behavior within past 3 months (C-SSRS Suicidal Behavior) ?? Suicidal ideation with method, WITHOUT plan, intent or behavior in past month (C-SSRS Suicidal Ideation #3) Or ?? Suicidal behavior more than 3 months ago (C-SSRS Suicidal Behavior Lifetime) Or ?? Multiple risk factors and few protective factors ?? Wish to or Suicidal Ideation WITHOUT method, intent, plan or behavior (C-SSRS Suicidal Ideation #1 or #2) Or ?? Modifiable risk factors and strong protective factors Or ? No reported history of Suicidal Ideation or Behavior Location / Risk: Inpatient / High: Suicidal ideation with intent and with realistic plan and no protective factors in past month OR suicidal behavior within the past 3 months. Includes suicidal behavior as reason for admission. a. Mitigate the risk for suicide by instituting one-one monitoring, removing objects that pose a risk for self-harm, assessing objects brought into a room by visitors, using safe transportation procedures when moving patient to another part of the unit or another part of the hospital, and performing the checklist recommendations for a safe environment. b. Food tray in plastic or paper containers with plastic utensils (no knives or aluminum cans). c. Transfer to Inpatient Psychiatry facility/Psychiatry Consult once medically cleared. d. Follow-up determined by the inpatient Psychiatric facility. [id number]11 Problem: Suicide, Risk of Goal: Absence of self-harm Outcome: Progressing as expected Problem: Discharge Planning Goal: Adequate for discharge Outcome: Progressing as expected Problem: Falls, Risk of Goal: Absence of falls Outcome: Progressing as expected Problem: Mental Status - Impaired, Risk of Goal: Absence of physical injury Outcome: Progressing as expected Problem: Pain Goal: Control of pain at or below patient's documented comfort goal Outcome: Progressing as expected Problem: Venous Thromboembolism, (actual or risk of) Goal: Absence of venous thromboembolism (Risk) Outcome: Progressing as expected Constantine Lewis [id number] 04:24:54 [facility] for diagnosis of intentional overdose Patient agrees to admission, discussed plan of care with patient and family. Patient is awake, alert, oriented, resp reg unlabored, color appropriate for race, PIV intact No adverse reaction to medications administered while in ED Belongings with patient to unit Report to Constantine SERNA [facility]2024-05-26 00:34:02 Poison control N[facility], suggest recheck of Asprin level around 3am Brett Fox [facility] [id number] 00:09:10 SAFE-T Protocol with C-SSRS ([place] Risk and Protective Factors) - Recent Identify Risk Factors 1) Wish to be - Have you wished you were or wished you could go to sleep and not wake up?: (P) Yes 2) Current suicidal thoughts- Have you actually had any thoughts of killing yourself?: (P) Yes 3) Suicidal thoughts w/method- Have you been thinking about how you might do this?: (P) Yes 4) Suicidal intent without Specific Plan- Have you had these thoughts and had some intention of acting on them?: (P) Yes 5) Intent with Plan- Have you started to work out or worked out the details of how to kill yourself? Do you intend to carry out this plan?: (P) Yes 6) C-SSRS Suicidal Behavior- Have you ever done anything, started to do anything, or prepared to do anything to end your life?: (P) Yes 6b) Was it in the past 3 months?: (P) Yes Activating Events: (P) Current or pending isolation or feeling alone Clinical Status: (P) Major depressive episode Treatment History: (P) Previous psychiatric diagnosis and treatments Access to lethal methods: (P) Yes Suggested risk level: (P) High Specific Questions of Thoughts, Plans, Intent: Frequency- how many times have you had these thoughts?: (P) Once a week Controllability - could/can you stop thinking about killing yourself or wanting to if you want to?: (P) Can control thoughts with some difficulty Deterrents - Are there things- anyone or anything (e.g. family, confucianist, pain of ) that stopped you from wanting to or acting on thoughts of suicide?: (P) Deterrents probably stopped you Reasons for ideation - What sort of reasons did you have for wanting to or kill yourself? Was it to end pain, stop the way you are feeling, or to get attention, revenge or reaction from others? Or both?: (P) Equally to get attention, revenge or a reaction from others and to end/stop the pain Identify Protective Factors Internal: (P) Identifies reasons for living External: (P) Responsibility to family or others, living with family Stratification: High Suicide Risk Moderate Suicide Risk Low Suicide Risk ?? Suicidal ideation with intent or intent with plan in past month (C-SSRS Suicidal Ideation #4 or #5) Or ?? Suicidal behavior within past 3 months (C-SSRS Suicidal Behavior) ?? Suicidal ideation with method, WITHOUT plan, intent or behavior in past month (C-SSRS Suicidal Ideation #3) Or ?? Suicidal behavior more than 3 months ago (C-SSRS Suicidal Behavior Lifetime) Or ?? Multiple risk factors and few protective factors ?? Wish to or Suicidal Ideation WITHOUT method, intent, plan or behavior (C-SSRS Suicidal Ideation #1 or #2) Or ?? Modifiable risk factors and strong protective factors Or ? No reported history of Suicidal Ideation or Behavior Location / Risk: Inpatient / Moderate: Suicidal ideation with intent and a plan in the past month but has protective factors, OR Suicidal behavior more than 3 months ago OR suicidal ideation with intent or method, no plan but has multiple risk factors and few protective factors. a. Directly address suicide risk with patient and family . b. Develop Safety plan including counseling about restriction and removal of firearms, medications, means to hang oneself, large sharp objects, etc. See safety plan. c. Consider transfer to Inpatient Psychiatry Hospital/ Inpatient Psychiatry Consult if unable to develop a safety plan. d. If patient is not transferred, will arrange for patient to be seen by Psychiatry provider within one week of discharge, and will also place referral to outpatient behavioral health resources. [place] [id number] 23:51:41 Patient/family educated on emergency department behavioral process and precautions. Educated on the need for direct observation, removal of belongings, and clearing of room for patient safety. Patient/family given community resources for outpatient treatment and care. [place] [id number] 23:33:40 Contacted Poison Control [place] at [place] location Case # [id number] Admit pt due to her cardiac history, observation at minimum of 12 hours Watch for QTC prolong, Tachycardia, HTN, Seizures, Hyperthermia. [place] [id number] 22:35:00 Safety Note Bed low/locked, side rails up x2, call light within reach, patient verbalized understanding of how/when to use. Family members present. Joyce Garcia RN [facility] [id number] 22:30:00 Pt brought in by [facility] after taking an unknown amount of Cetirizine 10 mg and Sertraline 50 mg about 40 pills. Pt stated she got in a fight with girlfriend and took the pills. Pt admitted to being suicidal at the time but denies suicidal ideations at this time. Pt stated she attempted to overdose as a teenager on ibuprofen. Denies ever being hospitalized. 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 female with SA via Overdose on Zoloft ( 50 mg x 40 taba) and Zyrtec(Patient reports "fewer tablets") Patient reports h/o pacemaker for "Congenital heart issue." Past Medical History/Immunizations: Past Medical History: Diagnosis Date Aortic root dilation Congenital heart block Pacemaker 1995 Tetanus received in last 5 years: Yes Childhood immunizations: Up-to-date Allergies: No Known Allergies Past Social History: Tobacco Use Never smoked or used smokeless tobacco. Alcohol Use Not Currently; 1.0 standard drink of alcohol per week; 0 Glasses of wine, 0 Cans of beer, 0 Shots of liquor, 1 Drinks containing 0.5 oz of alcohol. Comments: occasionally Drug Use Never. Sexual Activity Not currently sexually active; Partners: Female; Control/Protection: None. Past Surgical History: Past Surgical History: Procedure Laterality Date LAPAROSCOPIC APPENDECTOMY N/A 02/08/2020 Surgeon: Shi Peterson MD; [facility] PACEMAKER INSERTION Review of Systems: Review of Systems Constitutional: Negative. HENT: Negative. Eyes: Negative. Respiratory: Negative. Breasts: Negative. Cardiovascular: Negative. Gastrointestinal: Negative. Genitourinary: Negative. Musculoskeletal: Negative. Skin: Negative. Neurological: Negative. Psychiatric/Behavioral: Positive for dysphoric mood, self-injury and suicidal ideas. Negative for behavioral problems, confusion, decreased concentration, hallucinations and sleep disturbance. The patient is not nervous/anxious and is not hyperactive. Endocrine: Endocrine negative Physical Exam: ED Triage Vitals [08/29/23 2230] Weight 70.3 kg (155 lb) Actual or estimated Height 1.651 m (5' 5") BP (!) 130/91 Pulse 100 Resp 19 Temp 36.8 ?C (98.2 ?F) Temp source Oral SpO2 97 % Measured on Physical Exam Vitals and nursing note reviewed. Constitutional: General: She is not in acute distress. Appearance: Normal appearance. She is not ill-appearing, toxic-appearing or diaphoretic. HENT: Head: Normocephalic and atraumatic. Mouth/Throat: Mouth: Mucous membranes are dry. Eyes: Pupils: Pupils are equal, round, and reactive to light. Cardiovascular: Rate and Rhythm: Normal rate. Pulses: Normal pulses. Pulmonary: Effort: Pulmonary effort is normal. Abdominal: Palpations: Abdomen is soft. Musculoskeletal: General: Normal range of motion. Skin: General: Skin is warm. Capillary Refill: Capillary refill takes less than 2 seconds. Neurological: General: No focal deficit present. Mental Status: She is alert and oriented to person, place, and time. Psychiatric: Attention and Perception: Attention and perception normal. She is attentive. She does not perceive auditory or visual hallucinations. Mood and Affect: Mood is depressed. Speech: Speech normal. Behavior: Behavior is cooperative. Thought Content: Thought content normal. Cognition and Memory: Cognition and memory normal. Judgment: Judgment is impulsive. Radiology: No orders to display Lab Results: Lab Results COMP. METABOLIC PANEL (91825) - Abnormal Result Value Ref Range NA 145 135 - 145 mmol/L K 3.8 3.5 - 5.0 mmol/L CL 111 (*) 98 - 108 mmol/L CO2 TOTAL 22 (*) 23 - 31 mmol/L AGAP 12 2 - 16 BUN 13 7 - 23 mg/dL GLUCOSE 85 70 - 110 mg/dL CREATININE 0.92 0.50 - 1.04 mg/dL TOTAL BILI 0.4 0.1 - 1.1 mg/dL CALCIUM 9.6 8.6 - 10.6 mg/dL T PROTEIN 8.1 6.3 - 8.2 g/dL ALBUMIN 4.9 3.5 - 5.0 g/dL ALK PHOS 80 34 - 122 U/L ALTv 22 5 - 35 U/L AST(SGOT) 28 13 - 40 U/L eGFR 87.7 mL/min/1.73m2 ACETAMINOPHEN - Abnormal ACETAMINOP <10.0 (*) 10.0 - 30.0 ug/mL POCT TEST - Normal POCT PREG Negative On board controls acceptable with C Line Yes POCT PREG LOT # [id number] POCT PREG TEST DATE 08/07/2024 URINE DRUG (IMMUNOASSAY) - COMPREHENSIVE DRUG SCREEN - Normal AMPHET Negative Negative CHUNG U Negative Negative BENZO U Negative Negative Cocaine Metabolite Negative Negative METHADONE Negative Negative OPIATES Negative Negative PCP Negative Negative THC Negative Negative COVID-19 (ID NOW RAPID TESTING) - Normal SARS-CoV-2 Rapid ID NOW Not Detected Not Detected CBC WITH DIFF WBC 8.76 4.30 - 11.10 10*3/?L RBC 4.38 3.93 - 5.25 10*6/?L HGB 13.6 11.6 - 15.0 g/dL HCT 40.3 35.7 - 45.2 % MCV 92.0 80.6 - 95.5 fL MCH 31.1 25.9 - 32.8 pg MCHC 33.7 31.6 - 35.1 g/dL RDW-SD 40.7 39.0 - 49.9 fL RDW-CV 12.0 12.0 - 15.5 % PLT 286 166 - 358 10*3/?L MPV 10.3 9.5 - 12.9 fL NRBC/100 WBC 0.0 0.0 - 10.0 /100 WBCs NRBC x103<0.01 10*3/?L GRAN MAT (NEUT) % 65.8 % IMM GRAN % 0.30 % LYMPH % 21.9 % MONO % 8.1 % EOS % 3.1 % BASO % 0.8 % GRAN MAT x103(ANC) 5.76 1.88 - 7.09 10*3/uL IMM GRAN x1030.03 0.00 - 0.06 10*3/uL LYMPH x1031.92 1.32 - 3.29 10*3/uL MONO x1030.71 0.33 - 0.92 10*3/uL EOS x1030.27 0.03 - 0.39 10*3/uL BASO x1030.07 0.01 - 0.07 10*3/uL ETHANOL ALCOHOL 108 mg/dL SALICYLATE SALICYLATE 31 mg/L COVID-19 (MOLECULAR TESTING - NUCLEIC ACID AMPLIFICATION) EKG: If EKG completed, see Procedure Note. Orders and Treatments: Orders Placed This Encounter Procedures Cbc with Diff Comp. Metabolic Panel (38827) POCT Test Urine Drug (Immunoassay) - Comprehensive Drug Screen Ethanol Acetaminophen Salicylate COVID-19 (ID NOW TESTING) COVID-19 (MOLECULAR TESTING - NUCLEIC ACID AMPLIFICATION) Lab Only COVID Interpretation Orders Placed This Encounter Medications activated charcoal-sorbitoL (ACTIDOSE/SORBITAL) 25 gram/120 mL suspension 25 g NaCl 0.9% (NS) bolus infusion 1,000 mL First Provider Eval: ED Events Date/Time Event User Comments 08/29/232330 Medical Screening Begins EJ ROSE MD -- 08/29/232330 First Provider Evaluation EJ ROSE MD -- ED COURSE Diagnosis/Impression as of 08/30/23 0016 Intentional overdose, initial encounter Procedures: EKG-12 Lead ONCE Date/Time: 08/30/2023 12:19 AM Performed by: Ej Rose MD Authorized by: Ej Rose MD ECG interpreted by ED Physician in the absence of a electronic components assembler: yes Previous ECG: Previous ECG: Unavailable Interpretation: Interpretation: abnormal Rate: ECG rate: 82 ECG rate assessment: normal Rhythm: Rhythm: paced Pacing: Capture: Complete Type of pacing: Atrial Ectopy: Ectopy: none QRS: QRS axis: Normal QRS intervals: Normal QRS conduction: normal ST segments: ST segments: Normal T waves: T waves: normal Q waves: Abnormal Q-waves: not present MDM: Medical Decision Making Amount and/or Complexity of Data Reviewed Labs: ordered. Risk OTC drugs. Prescription drug management. A) SI with Suicide Attempt via Overdose on Zoloft and Zyrtec, Congenital Heart Disease with Atrial sensed Ventricular paced Pacemaker Disposition/Condition: Admit-IM, Telemetry, IVF's, Charcoal given in ED, Suicide Precautions with Sitter. ED Disposition None Discharge Medications: Patient's Medications START taking these medications No medications on file CONTINUE taking these medications which have NOT CHANGED ARIPIPRAZOLE (ABILIFY) 15 MG TABLET Take 1 tablet by mouth in the morning. BUSPIRONE 5 MG TABLET TAKE 1 TABLET BY MOUTH 2 TIMES DAILY NEEDED (ANXIETY). RIZATRIPTAN 5 MG TABLET Take 1 tablet by mouth as needed for Migraine. May repeat in 2 hours if needed SERTRALINE 50 MG TABLET TAKE 1 TABLET BY MOUTH EVERY DAY IN THE MORNING SERTRALINE 50 MG TABLET Take 1 tablet by mouth every morning. START taking Modified Medications as Prescribed No medications on file STOP taking these medications No medications on file Electronically signed by: Ej Rose MD 08/30/23 0017 Ej Rose MD 08/30/23 0020 T [facility] EMERGENCY PHYSICIAN STAFFMer[facility] HospitalIgrosd8437-29-12 10:45:08 Follow-up for refills [facility]2024-01-05 08:30:27 Recent Visits Date Type Provider Dept 12/31/22 Office Visit Pina Flores PA [facility] 12/05/22 Office Visit Pina Flores PA [facility] 01/06/23 Office Visit Cynthia Watts MD [facility] Showing recent visits within past 540 days with a meds authorizing provider and meeting all other requirements Future Appointments No visits were found meeting these conditions. Showing future appointments within next 150 days with a meds authorizing provider and meeting all other requirements Last refill was Disp Refills Start End NEVILLE SERTraline 50 mg tablet 30 tablet 0 02/01/2023 -- No Sig: Take 1 tablet by mouth in the morning. 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 Will also need to do poct pg urine test prior to starting. [facility]2023-09-05 11:15:00 Images from the original note were not included. Venipuncture collection performed by clean technique on the right anticubitus. Total of 2 attempts were made. Slight pressure and a bandage/dressing were applied to the site(s). The patient experienced no complications. The following specimens were processed according to instructions and sent to [facility] laboratories per lab order on 12/09/2022 : LT BLUE SST 4 RED 1 LAV 2 PPT DK GREEN (LiHep) DK GREEN (SodH) WALKER DK BLUE (K2) DK BLUE (S) ACD Blood Culture NIPT/NTD Patient has been identified by and was provided with cup, antiseptic towelette, and clean catchinstructions. 1 urine specimen(s) sent. Unpreserved Urine Culture Aptima tube 1 Other urine T [facility]
[2024-01-13] MEDS ORDERED: MORPHINE 4 MG/ML SYR ONE (01:36)
[2024-01-13] MEDS ORDERED: ONDANSETRON 4 MG/2 ML VIAL ONE (01:36)
[2024-01-13] MEDS ORDERED: propofoL 200 MG/20 ML VIAL IV ONE (02:15)
--- NOTE | 2024-01-13 03:24 | EDPHYS ---
Physician Documentation [facility] Name: Perla Carlson Age: 28 yrs Sex: Female : 1995 Arrival Date: 01/13/2024 Time: 01:19 Bed 3 Private MD: ED Physician Jose D Casper HPI: 01/12 02:00 This 28 yrs old Female presents to ER via Ambulatory with complaints of Shoulder Injury.rt 02:00 Patient presents to the ED with a left shoulder injury. States that she believes she rt dislocated her shoulder. Patient fell on her outstretched arm causing it to dislocate. Denies other pain, other injury. Symptoms are moderate in severity, no other aggravating or alleviating factors.. 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 - Infectious Disease History:: Denies. - Social history:: Smoking status: Reported history of juuling and/or vaping. ROS: 02:00 Constitutional: Negative for fever, chills, and weight loss, Cardiovascular: Negative rt for chest pain, palpitations, and edema, Respiratory: Negative for shortness of breath, cough, wheezing, and pleuritic chest pain, Abdomen/GI: Negative for abdominal pain, nausea, vomiting, diarrhea, and constipation, Skin: Negative for injury, rash, and discoloration, Neuro: Negative for headache, weakness, numbness, tingling, and seizure, 02:00 MS/extremity: Positive for injury or acute deformity, pain, Exam: 02:00 Constitutional: This is a well developed, well nourished patient who is awake, alert, rt and in no acute distress. Head/Face: Normocephalic, atraumatic. Chest/axilla: Normal chest wall appearance and motion. Nontender with no deformity. No lesions are appreciated. Cardiovascular: Regular rate and rhythm with a normal S1 and S2. No gallops, murmurs, or rubs. Normal PMI, no JVD. No pulse deficits. Respiratory: Lungs have equal breath sounds bilaterally, clear to auscultation and percussion. No rales, rhonchi or wheezes noted. No increased work of breathing, no retractions or nasal flaring. Abdomen/GI: Soft, non-tender, with normal bowel sounds. No distension or tympany. No guarding or rebound. No evidence of tenderness throughout. 02:00 ECG was reviewed by the Attending Physician. 02:00 Musculoskeletal/extremity: Of a shoulder dislocation on the left, tenderness at that area, no other focal areas of tenderness. Vital Signs: 01:20 BP 137 / 81; Pulse 81; Resp 12; Temp 98; Pulse Ox 100% ; Weight 65.77 kg; Height 5 ft. vc1 5 in. ; Pain 10/10; 01:20 Body Mass Index 24.13 (65.77 kg, 165.1 cm) vc1 01:20 Pain Scale: Adult vc1 Procedures: 03:53 Reduction: of the left shoulder, using traction, manipulation, Immobilized with sling, rt Patient tolerated well. Post reduction film - reveals normal alignment. Moderate sedation: Pre-procedure assessment: the patient has been NPO 10 hour(s) prior to arrival, ASA physical classification: II - mild/mod systemic disease that does not interfere with daily routines, Airway assessment: able to hyperextend neck, able to maintain airway, can open mouth without difficulty, Mallampati classification of tongue size: I - faucial pillars, soft palate, and uvula can be fully visualized, Monitoring during procedure: metal bumper, continuous pulse oximetry, nurse at bedside at all times, Medications employed: Propofol, Post-procedure assessment: the patient is not sedated, Ford sedation score: 1 - patient anxious or agitated or both, Respiratory status: even and unlabored, a reversal agent was not used. MDM: 01:23 Patient medically screened. rt 03:53 Differential diagnosis: Anterior dislocation with fracture, Anterior dislocation rt without fracture. Data reviewed: vital signs, nurses notes, radiologic studies. I considered the following discharge prescriptions or medication management in the emergency department Medications were administered in the Emergency Department. See MAR. Independent interpretation of the following test(s) in the Emergency Department X-Ray: My interpretation is Successful reduction seen on my interpretation of x-ray images. Counseling: I had a detailed discussion with the patient and/or guardian regarding the historical points, exam findings, and any diagnostic results supporting the discharge/admit diagnosis, radiology results, the need for outpatient follow up, to return to the emergency department if symptoms worsen or persist or if there are any questions or concerns that arise at home. Response to treatment: the patient's symptoms have resolved after treatment. 01/12 01:27 Order name: Shoulder Left (2 View) XRAY rt 01/12 02:59 Order name: Shoulder 1 View EDMS 01/12 01:27 Order name: Conscious Sedation; Complete Time: 03:10 rt EC:00 Rate is 91 beats/min. Rhythm is regular, Paced with No ectopy. QRS [place] is Normal. SC rt interval is normal. QRS interval is normal. QT interval is normal. No Q waves. Administered Medications: 01:39 Drug: morphine IVP or IV 4 mg IVP once over 4 mins Route: IVP; Infused Over: 4 mins; br2 Site: right hand; 02:15 Follow up: Response: No adverse reaction; Pain is decreased br2 01:39 Drug: Ondansetron IVP 4 mg IVP once; over 2 minutes Route: IVP; Site: right hand; br2 02:15 Follow up: Response: No adverse reaction; Pain is decreased br2 02:38 Drug: Propofol IVP 75 mg IVP once; Document RASS score. Route: IVP; Site: right hand; br2 03:14 Follow up: Response: No adverse reaction br2 03:15 Follow up: Response: No adverse reaction; RASS: Alert and Calm (0) br2 02:44 Drug: Propofol IVP 25 mg IVP once; Document RASS score. Route: IVP; Site: right hand; br2 03:15 Follow up: Response: No adverse reaction; RASS: Drowsy (-1) br2 02:47 Drug: Propofol IVP 25 mg IVP once; Document RASS score. Route: IVP; Site: right hand; br2 03:15 Follow up: Response: No adverse reaction; RASS: Moderate sedation (-3) br2 Disposition Summary: 01/13/24 03:24 Discharge Ordered Notes: Location: Home rt Problem: new rt Symptoms: have improved rt Condition: Stable rt Diagnosis - Other dislocation of left shoulder joint rt Followup: rt - With: Ronnie Hogan MD - When: 5 - 6 days - Reason: Discharge Instructions: - Discharge Summary Sheet rt - Shoulder Dislocation rt - Moderate Conscious Sedation, Adult rt Forms: - Medication Reconciliation Form rt - Antibiotic Education rt - Prescription Opioid Use rt - Patient Portal Instructions rt - Leadership Thank You Letter rt Signatures: Dispatcher [employer] EDLorene Thorne RN RN vc1 Jose D Casper MD MD rt Erin Lawrence RN RN br2 Corrections: (The following items were deleted from the chart) 02:59 02:48 Shoulder Left 2 View+RAD.[email or web address] ordered. EDMS EDMS
--- NOTE | 2024-01-13 03:24 | ER ---
Nurse's Notes [facility] Name: Perla Carlson Age: 28 yrs Sex: Female : 1995 Arrival Date: 01/13/2024 Time: 01:19 Bed 3 Private MD: Diagnosis: Other dislocation of left shoulder joint Presentation: 01/12 01:20 Chief complaint: Patient states: slipped and fell at work, my arm stayed on top of a vc1 table while my body went down. Coronavirus screen: Client denies travel out of the [place] in the last 14 days. At this time, the client does not indicate any symptoms associated with coronavirus-19. Ebola Screen: Patient negative for fever greater than or equal to 101.5 degrees Fahrenheit, and additional compatible Ebola Virus Disease symptoms Patient denies exposure to infectious person. Patient denies travel to an Ebola-affected area in the 21 days before illness onset. No symptoms or risks identified at this time. 01:20 Method Of Arrival: Ambulatory vc1 01:20 Initial Sepsis Screen: Does the patient meet any 2 criteria? No. Patient's initial vc1 sepsis screen is negative. Does the patient have a suspected source of infection? No. Patient's initial sepsis screen is negative. Risk Assessment: Do you want to hurt yourself or someone else? Patient reports no desire to harm self or others. Onset of symptoms was January 13, 2024. Care prior to arrival: None. Activity prior to arrival: None. Mechanism of Injury: Fall. Transition of care: patient was not received from another setting of care. 01:20 Acuity: DENIA 2 vc1 Triage Assessment: 01:20 General: Appears uncomfortable, slender, Behavior is cooperative. Pain: Complains of vc1 pain in anterior aspect of left shoulder and posterior aspect of left shoulder Pain currently is 10 out of 10 on a pain scale. Aggravated by movement. Neuro: Level of Consciousness is awake, alert, obeys commands, Oriented to person, place, time, situation, Appropriate for age. Cardiovascular: Rhythm is ventricular pacer. Respiratory: Airway is patent Respiratory effort is even, unlabored, Respiratory pattern is regular, symmetrical. : No deficits noted. No signs and/or symptoms were reported regarding the genitourinary system. Derm: Bruising that is dark purple, on left elbow. Musculoskeletal: Range of motion: limited in left shoulder left shoulder. Injury Description: dislocation. 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 - Infectious Disease History:: Denies. - Social history:: Smoking status: Reported history of juuling and/or vaping. Screenin:20 Abuse screen: Denies threats or abuse. Nutritional screening: No deficits noted. vc1 Tuberculosis screening: No symptoms or risk factors identified. 01:20 [facility] ED Fall Risk Assessment (Adult) History of falling in the last 3 months, vc1 including since admission Yes- single mechanical fall (1 pt) Confusion or Disorientation No (0 pts) Intoxicated or Sedated No (0 pts) Impaired Gait No (0 pts) Mobility Assist Device Used No (0 pt) Altered Elimination No (0 pt) Score/Fall Risk Level 0 - 2 = Low Risk Oriented to surroundings, Maintained a safe environment, Educated pt \T\ family on fall prevention, incl call for assistance when getting out of bed. Assessment: 01:20 Reassessment: Patient and/or family updated on plan of care and expected duration. Pain br2 level reassessed. Patient is alert, oriented x 3, equal unlabored respirations, skin warm/dry/pink. 02:38 Reassessment: SEE CONSCIOUS SEDATION PAPERWORK. br2 02:54 Reassessment: POST REDUCTION LEFT SHOULDER X-RAY. PT AWAKE AND AOX4. br2 03:33 Reassessment: Patient and/or family updated on plan of care and expected duration. Pain br2 level reassessed. Patient is alert, oriented x 3, equal unlabored respirations, skin warm/dry/pink. Patient states symptoms have improved. 03:52 Reassessment: PT PICKED UP BY HER FATHER. br2 Vital Signs: 01:20 BP 137 / 81; Pulse 81; Resp 12; Temp 98; Pulse Ox 100% ; Weight 65.77 kg; Height 5 ft. vc1 5 in. ; Pain 10/10; 01:20 Body Mass Index 24.13 (65.77 kg, 165.1 cm) vc1 01:20 Pain Scale: Adult vc1 ED Course: 01:19 Patient arrived in ED. [id number] 01:20 Arm band placed on right wrist. vc1 01:20 EKG completed in triage. Results shown to MD. vc1 01:20 Patient has correct armband on for positive identification. Placed in gown. Bed in low vc1 position. Call light in reach. laboratory monitor on. Pulse ox on. NIBP on. 01:21 Jose D Casper MD is Attending Physician. rt 01:25 Erin Lawrence RN is Primary Nurse. br2 01:45 Inserted saline lock: 22 gauge in right hand, using aseptic technique. Blood collected. br2 Flushed with 10 mL NS. 01:45 Missed attempt(s): 20 gauge in left antecubital area. br2 01:52 Shoulder Left (2 View) XRAY In Process Unspecified. EDMS 01:52 Triage completed. vc1 02:38 Assist provider with reduction of left shoulder using manipulation, Set up for br2 procedure. Performed by Jose D Casper MD Immobilized with shoulder immobilizer Patient tolerated well. 02:59 Shoulder 1 View In Process Unspecified. EDMS 03:23 Ronnie Hogan MD is Referral Physician. rt 03:33 IV discontinued, intact, bleeding controlled, No redness/swelling at site. Pressure br2 dressing applied. Administered Medications: 01:39 Drug: morphine IVP or IV 4 mg IVP once over 4 mins Route: IVP; Infused Over: 4 mins; br2 Site: right hand; 02:15 Follow up: Response: No adverse reaction; Pain is decreased br2 01:39 Drug: Ondansetron IVP 4 mg IVP once; over 2 minutes Route: IVP; Site: right hand; br2 02:15 Follow up: Response: No adverse reaction; Pain is decreased br2 02:38 Drug: Propofol IVP 75 mg IVP once; Document RASS score. Route: IVP; Site: right hand; br2 03:14 Follow up: Response: No adverse reaction br2 03:15 Follow up: Response: No adverse reaction; RASS: Alert and Calm (0) br2 02:44 Drug: Propofol IVP 25 mg IVP once; Document RASS score. Route: IVP; Site: right hand; br2 03:15 Follow up: Response: No adverse reaction; RASS: Drowsy (-1) br2 02:47 Drug: Propofol IVP 25 mg IVP once; Document RASS score. Route: IVP; Site: right hand; br2 03:15 Follow up: Response: No adverse reaction; RASS: Moderate sedation (-3) br2 Medication: 01:56 VIS not applicable for this client. vc1 Outcome: 03:24 Discharge ordered by MD. rt 03:33 Discharged to home ambulatory, br2 03:33 Condition: improved 03:33 Discharge instructions given to patient, Instructed on discharge instructions, follow up and referral plans. Demonstrated understanding of instructions, follow-up care, 03:51 Patient left the ED. br2 Signatures: Dispatcher [employer] EDMS Shyanne [id number] Lorene Vigil RN RN vc1 Jose D Casper MD MD rt Erin Lawrence RN RN br2 Corrections: (The following items were deleted from the chart) 03:48 01:20 Pain: br2 br2 03:52 03:51 Patient left the ED. br2 br2
[2024-01-13 04:06] VITALS: BP 137/81; TEMP 98; O2SAT 100
--- NOTE | 2024-01-13 05:44 | RAD REPORT ---
EXAM: XR Left Shoulder Complete, 2 or More Views CLINICAL HISTORY: Pain. TECHNIQUE: Two or more views of the left shoulder. COMPARISON: No relevant prior studies available. FINDINGS: Bones/joints: Anterior inferior humeral head dislocation. Slight concavity along the posterolateral humeral head which may reflect a Hill-Sachs fracture. Soft tissues: Unremarkable. IMPRESSION: Anterior inferior humeral head dislocation. Possible Hill-Sachs fracture. Electronically signed by: Robyn Devlin MD 01/13/2024 02:35 AM CDT Due to temporary technical issues with the PACS/2U reporting system, reports are being hollie d by the in-house radiologist without review as a courtesy to ensure prompt reporting the interpreting radiologist is fully responsible for the content of the report. Transcribed Date/Time: 01/13/2024 5:44 AM
--- NOTE | 2024-01-13 05:45 | RAD REPORT ---
CLINICAL HISTORY: Post reduction. COMPARISON: XR Shoulder Left 01/13/2024. TECHNIQUE: XR SHOULDER 1 VIEW 01/13/2024 2:48 AM CDT FINDINGS: There is no fracture. Joint spaces are preserved. Soft tissues are unremarkable. IMPRESSION: Successful reduction of right shoulder dislocation. Electronically signed by: Carlos Castillo MD 01/13/2024 04:51 AM CDT RP Due to temporary technical issues with the PACS/[employer] reporting system, reports are being hollie d by the in-house radiologist without review as a courtesy to ensure prompt reporting the interpreting radiologist is fully responsible for the content of the report. Transcribed Date/Time: 01/13/2024 5:45 AM
--- NOTE | 2024-01-14 16:56 | EKG ---
Test Date: 2024-01-13 Test Time: 01:39:17 First Aid Officer: SIGIFREDO MEASUREMENT RESULTS: Intervals: Rate: 91 ME: 168 QRSD: 144 QT: 402 QTc: 494 [place]: P: 81 ME: 168 QRS: -63 T: 105 INTERPRETIVE STATEMENTS: Electronic ventricular pacemaker Compared to ECG 05/29/2021 14:40:10 Atrial-sensed ventricular-paced complex(es) or rhythm no longer present Electronically Signed On 01-14-24 16:51:19 CDT by Asaf Brunson
== END 2024-01-13 03:51 | disposition home or self-care (01) ==
LOC: ER 01:19
DX: S43.085A Other dislocation of left shoulder joint, initial encounter (principal); W18.30XA Fall on same level, unspecified, initial encounter
CPT/HCPCS: 73020; 93005; J2405; J2704